=== PATIENT | male | born 1980 | race African-American/Black ===

== ENCOUNTER 2018-01-15 20:51 | Inpatient (IN) | payer OTHER ==
[2018-01-15 22:40] LABS: CKMB 46.6 ng/mL (0-6.6); Troponin I 1.655 ng/mL (< 0.028)
[2018-01-15] MEDS ORDERED: Enoxaparin Sodium 100 MG/ML SYRINGE ONE (23:14)
[2018-01-15] MEDS ORDERED: Enoxaparin Sodium 30 MG/0.3 ML SYRINGE ONE (23:14)
[2018-01-16] MEDS ORDERED: Ondansetron HCl/PF 4 MG/2 ML Vial IVP PRN (00:02)
[2018-01-16] MEDS ORDERED: Ondansetron ODT 4 MG TAB SL PRN (00:02)
[2018-01-16] MEDS: Nitroglycerin 2% Ointment 1 INCH/1 GM Packet TOP SCH ×3 (01:45→22:03)
[2018-01-16 02:11] LABS: Troponin I 2.973 ng/mL (< 0.028)
[2018-01-16] MEDS ORDERED: Nitroglycerin 2% Ointment 1 INCH/1 GM Packet ONE ×2 (02:12→08:29)
[2018-01-16] MEDS ORDERED: Dextrose 50% Abboject 50 ML SYRINGE SLOW IVP PRN (02:38)
[2018-01-16] MEDS ORDERED: Dextrose 5% in Water 1,000 ML IV PRN (02:38)
[2018-01-16] MEDS ORDERED: Atorvastatin Calcium 40 MG TAB PO ONE (02:50)
--- NOTE | 2018-01-16 03:22 | HP ---
PRIMARY CARE PHYSICIAN: Larry Curry M.D. CHIEF COMPLAINT: Chest pain. HISTORY OF PRESENT ILLNESS: The patient is a very pleasant 37-year-old male with a history of hypert ension and diabetes, who presented to the hospital with complaints of chest pain. The patient stated that around yesterday 9:00 a.m. he was trying to take a nap had some chest discomfort which woke him up. The patient initially thought that his chest pain was secondary to heartburn. He tried drinkin g a coke, but did not get any relief. The patient's burning-like sensation, chest pain, increased to a pressure-like sensation which concerned him and then he came into the ER for further evaluation. The patient was initially taken to the [facility]. Initial troponin was negative. The patient was m onitored for about 6 hours; however, the ER physician noticed an increase of troponin. He also had a CTA chest to rule out PE, which was negative. The patient was then transferred here for further maynor luation. PAST MEDICAL HISTORY: Diabetes, high blood pressure. FAMILY HISTORY: According to the patient, mother had a heart attack when he was a baby. She at the age of 67. PAST SURGICAL HISTORY: The patient had some orthopedic surgeries. PAST MEDICAL HISTORY: Diabetes, hypertension, hyperlipidemia. ALLERGIES: He is allergic to SULFA. MEDICATIONS: The patient takes atorvastatin 10 mg daily, metformin 1000 mg p.o. q.p.m. and losartan 50 mg p.o. daily. REVIEW OF SYSTEMS: The following complete review of systems was negative, unless otherwise mentioned in the HPI or below: Constitutional: Weight loss or gain, ability to conduct usual activities. Sk in: Rash, itching. Eyes: Double vision, pain. ENT/Mouth: Nose bleeding, neck stiffness, pain, ten derness. Cardiovascular: Palpitations, dyspnea on exertion, orthopnea. Respiratory: Shortness of breath, wheezing, cough, hemoptysis, fever or night sweats. Gastrointestinal: Poor appetite, abdomi nal pain, heartburn, nausea, vomiting, constipation, or diarrhea. Genitourinary: Urgency, frequency , dysuria, nocturia. Musculoskeletal: Pain, swelling. Neurologic/Psychiatric: Anxiety, depression . Allergy/Immunologic: Skin rash, bleeding tendency. All negative except for the ones mentioned in the HPI. PHYSICAL EXAMINATION: VITAL SIGNS: The patient's temperature was 98.8, blood pressure 130/58, heart rate of 90, respiratio ns 18, and saturating 99% on room air. GENERAL: He is awake, alert, oriented x3, does not appear in any distress. CARDIOVASCULAR: S1, S2 present. No murmurs, rubs or gallops. ABDOMEN: Obese. Bowel sounds are present x2. No tenderness upon palpation. No hepatomegaly or spl enomegaly appreciated. LUNGS: Clear to auscultation. No rhonchi, wheezes noted. EXTREMITIES: No edema. LABORATORY DATA: Are as the following: CBC: WBC of 8.5, hemoglobin of 14.2, hematocrit of 43.8, an d platelets of 221. The patient's troponins initially were less than 0.05; however, they continued t o worsen, they went up to 0.18. Currently, troponin is 1.65 and now it is 2.97. Creatinine is 1.0. ASSESSMENT AND PLAN: The patient is a very pleasant 37-year-old male who presents to the hospital wi th complaints of chest pain. 1. [id number] elevation myocardial infarction. The patient's troponins are trending mildly up. He did get Lovenox in the ER. We will continue Lovenox b.i.d. The patient already got aspirin. We will start the patient on statin. We will check hemoglobin A1c in the morning. We will check lipid panel in the morning. Cardiology has been consulted. We will keep patient n.p.o. after midnight. 2. Diabetes. I will put the patient on sliding scale insulin. Hold metformin for now. 3. Hypertension. We will continue home medications. We will continue to monitor. 4. Morbid obesity. The patient will need education on diet, exercise, and weight loss. 5. Deep venous thrombosis prophylaxis. The patient will be already on Lovenox for [id number] el evation myocardial infarction.
[2018-01-16] MEDS: Dextrose 5 % And 0.9 % NaCl 1,000 ML IV SCH ×2 (03:55→16:15)
[2018-01-16 06:35] LABS: Troponin I 4.165 ng/mL (< 0.028)
[2018-01-16 06:40] LABS: Hemoglobin A1c 7.8 % (4.0-6.0)
[2018-01-16 06:48] LABS: Anion Gap 12 mmol/L (10-20); BUN (Urea Nitrogen) 9 mg/dL (8.9-20.6); Calc. Creatinine Clearance 184 mL/min (70-130); Calcium 9.7 mg/dL (7.8-10.44); Carbon Dioxide 26 mmol/L (22-29); Cardiac Risk 4.8 (Less than 4.5); Chloride 102 mmol/L (98-107); Cholesterol 167 mg/dl (< 200 Desired); Estimated GFR-MDRD Greater than 90; Glucose 219 mg/dL (70-105); HDL Cholesterol 35 mg/dL (>60 Neg Risk); LDL Cholesterol, Calculated 105 mg/dL; Potassium 4.2 mmol/L (3.5-5.1); Sodium 136 mmol/L (136-145); Triglycerides 136 mg/dL (Less than 150)
[2018-01-16 06:53] LABS: Hemoglobin 14.3 g/dL (14.0-18.0); Lymphocytes 28 % (21-51); MDiff Complete? YES; Mean Corpuscular HGB CONC 32.8 g/dL (32.0-36.0); Mean Corpuscular Hemoglobin 28.3 pg (27.0-31.0); Mean Corpuscular Volume 86.4 fl (80.0-94.0); Mean Platelet Volume 6.8 fL (7.4-10.4); Monocytes 6 % (0-10); Neutrophil 65 % (42-75); Platelet Count 262 thou/uL (130-400); RBC Distribution Width 11.9 % (11.5-14.5); Reactive Lymphocytes 1 % (0-10); Red Blood Cell (RBC) Count 5.07 mill/uL (4.70-6.10); White Blood Cell (WBC) Count 9.7 thou/uL (4.8-10.8)
[2018-01-16] MEDS ORDERED: Aspirin 325 MG TAB PO SCH (08:00)
[2018-01-16] MEDS ORDERED: Enoxaparin Sodium 120 MG/0.8 ML SYRINGE SC SCH (09:00)
[2018-01-16] MEDS: Aspirin 325 MG TAB PO SCH (09:17)
[2018-01-16] MEDS: Losartan 25 MG TAB PO SCH (09:17)
[2018-01-16] MEDS: Enoxaparin Sodium 100 MG/ML SYRINGE SC SCH ×2 (09:18→22:01)
[2018-01-16] MEDS: Enoxaparin Sodium 30 MG/0.3 ML SYRINGE SC SCH (09:18)
[2018-01-16 14:32] LABS: Hemoglobin 14.8 g/dL (14.0-18.0); Platelet Count 273 thou/uL (130-400)
--- NOTE | 2018-01-16 14:33 | PDOC.EVN ---
Event Note - Event Note Event Note: Chart reviewed, pt seen. Denies any current chest pain. Will follow.
[2018-01-16 14:48] LABS: Calc. Creatinine Clearance 192 mL/min (70-130); Estimated GFR-MDRD Greater than 90
[2018-01-16] MEDS ORDERED: Communication Order-Pharmacy FS SCH (17:00)
[2018-01-16] MEDS: Atorvastatin Calcium 40 MG TAB PO SCH (22:03)
[2018-01-16] MEDS: Metoprolol Tartrate 25 MG TAB PO SCH (22:04)
--- NOTE | 2018-01-17 00:57 | CON ---
DATE OF CONSULTATION: 01/16/2018 HISTORY OF PRESENT ILLNESS: Gabriele Pham is a 37-year-old, black male admitted with NSTEMI. In 02/2017, he was seen at [facility] for chest pain and enzymes were negative. He did have a right bundle branch block on his EKG at that time. He denies any other chest pain until yesterday morning , awoke approximately 9:00 a.m. with substernal chest burning. This awakened him from sleep. He drank a coke, but this did not seem to help. He then went to the [facility]. Initial troponin I was negative; however, repeat was abnormal. He was monitored for approximately 6 hours there. He also had a chest CT with contrast that did not show anything particular. Apparently, it was not timed for ruling out pulmonary embolism. His record states that he is allergic to IODINE; however, the patient states that he is not. In the records from [facility], it states that after the chest CT that there were no complications. He only states he had some itching in his left arm , but the IV was in his right arm, and he did not have any generalized itching, rash, or shortness of breath. He has never had IODINE in the past. While at [facility], he received nitroglycerin 0.4 mg sublingually, heparin 5000 units followed by a drip, one dose of Plavix 75 mg, morphine 10 mg intravenously twice, lorazepam 2 mg IV, pantoprazole 40 mg IV, Toradol 30 mg IV , viscous lidocaine p.o., aspirin 325, and Zofran 2 mg IV. He states total duration of his pain was approximately 2 hours. He ultimately was transferred here to [facility] for further evaluation when he had positive cardiac enzymes. He denies any recurrence of the pain after subsided. PAST MEDICAL HISTORY: Hypertension, diabetes, hypercholesterolemia. He states that he frequently forgets his atorvastatin. MEDICATIONS: Aspirin 325 daily, atorvastatin 10 daily, metformin 1000 mg q.p.m. , and losartan 50 mg daily. ALLERGIES: SULFA. Question of allergy to IODINE, which patient denies. OPERATIONS: Right wrist surgery, left finger surgery. SOCIAL HISTORY: He does not smoke or drink. He is a diesel truck mechanic. He is . FAMILY HISTORY: He states that his mother had myocardial infarction sooner after giving and had a lot of heart problems. REVIEW OF SYSTEMS: Twelve-point review of systems is otherwise unremarkable. PHYSICAL EXAMINATION: VITAL SIGNS: Blood pressure 144/84, pulse of 88. HEENT: PERRL. NECK: Supple. CHEST: Clear. CARDIAC: S1 and S2 are normal without any S3, S4 or murmurs. Carotid upstrokes are normal without bruits. ABDOMEN: Normal bowel sounds without tenderness, organomegaly. The abdomen is obese. EXTREMITIES: Revealed no clubbing, cyanosis, or edema. NEUROLOGIC: Grossly intact. SKIN: Warm and dry. LABORATORY DATA: EKG revealed normal sinus rhythm with right-bundle branch block, possible old inferior infarction. Hemoglobin 14.3, hematocrit 43.8, white count 9700, platelets 262,000. Sodium 136, potassium 4.2, chloride 102, carbon dioxide 26, BUN is 9, creatinine 1.00. Troponin I has peaked at 4.165. CK-MB is up to 46.6. Cholesterol 167, triglycerides 136, HDL 35, LDL 105. IMPRESSION: 1. Rsf-LQ-[id number] elevation myocardial infarction. 2. Hypercholesterolemia, poorly-controlled diabetic with an LDL of 107. 3. Diabetes. 4. Hypertension. 5. Obesity. 6. Possible family history. 7. 4 and 5 beats of NSVT during the first 24 hours after [place]. PLAN: Situation was discussed with patient. He will undergo echocardiography to assess left ventricular function. It was recommended that he undergo cardiac catheterization. Risks of this were discussed including , myocardial infarction, dye reaction, vascular injury, CVA, transfusion, limb loss, renal loss, etc. Also, risk of intervention with PTCA or stent placement were discussed including , myocardial infarction, emergent CABG, restenosis , stent thrombosis, vessel perforation, etc. He does not have any upcoming surgeries, he has never had gastrointestinal bleeding or stroke, and overall, it was recommended that a drug-eluting stent be placed if needed. JAIRON
[2018-01-17] MEDS: Dextrose 5 % And 0.9 % NaCl 1,000 ML IV SCH ×2 (06:45→14:25)
[2018-01-17] MEDS: Nitroglycerin 2% Ointment 1 INCH/1 GM Packet TOP SCH ×3 (06:46→21:26)
[2018-01-17] MEDS: Aspirin 325 MG TAB PO SCH (09:35)
[2018-01-17] MEDS: HumaLOG 300 UNITS/3 ML VIAL SC PRN ×3 (09:36→16:56)
[2018-01-17] MEDS: Enoxaparin Sodium 100 MG/ML SYRINGE SC SCH ×2 (09:36→21:22)
[2018-01-17] MEDS: Enoxaparin Sodium 30 MG/0.3 ML SYRINGE SC SCH (09:36)
[2018-01-17] MEDS: Losartan 25 MG TAB PO SCH (09:39)
[2018-01-17] MEDS: Metoprolol Tartrate 25 MG TAB PO SCH ×2 (09:39→21:23)
--- NOTE | 2018-01-17 13:19 | PDOC.PN ---
- Subjective Encounter Start Date: 01/17/18 Encounter Start Time: 08:00 Pt seen for followup re: NSTEMI. Denies chest pain, shortness of breath, fevers or chills. - Objective MAR Reviewed: Yes Vital Signs & Weight: Vital Signs (12 hours) Temp Pulse Resp BP Pulse Ox 01/17/18 12:05 98.6 F 89 16 97/51 L 01/17/18 09:35 90 105/51 L 01/17/18 08:05 98.2 F 84 18 104/54 L 97 01/17/18 04:00 98.4 F 88 18 99/52 L 95 Weight Admit Weight 281 lb Weight 278 lb 4.8 oz I&O: 01/16/18 01/17/18 01/18/18 06:59 06:59 06:59 Intake Total 2855 Output Total 1800 Balance 1055 Result Diagrams: 01/16/18 14:24 01/16/18 14:24 Additional Labs: Accuchecks 01/17/18 01/17/18 01/16/18 10:57 05:58 21:40 POC Glucose 231 H 242 H 211 H 01/16/18 16:21 POC Glucose 233 H EKG Reviewed by me: Yes (Tele: NSR) Phys Exam - Physical Examination Obesity HEENT: PERRLA, moist MMs, sclera anicteric, oral pharynx no lesions Neck: no nodes, no JVD, supple, full ROM Respiratory: no wheezing, no rales, no rhonchi, clear to auscultation bilateral Cardiovascular: RRR, no rub Gastrointestinal: soft, non-tender, no distention, positive bowel sounds Musculoskeletal: pulses present Neurological: moves all 4 limbs Psychiatric: normal affect, A&O x 3 Dx/Plan (1) NSTEMI (non-ST elevated myocardial infarction) Code(s): I21.4 - NON-ST ELEVATION (NSTEMI) MYOCARDIAL INFARCTION Status: Acute Comment: continue aspirin, lovenox, statin, beta otilia and ARB. For cath tomorrow. (2) HTN (hypertension) Code(s): I10 - ESSENTIAL (PRIMARY) HYPERTENSION Status: Chronic Comment: Monitor vital signs, titrate antihypertensives as needed (3) DM2 (diabetes mellitus, type 2) Status: Chronic Comment: continue accuchecks, insulin sliding scale. (4) Obesity (BMI 30-39.9) Code(s): E66.9 - OBESITY, UNSPECIFIED Status: Chronic - Plan * . Review of Systems - Review of Systems Constitutional: negative: fever, chills, sweats, weakness, malaise Respiratory: negative: Cough, Shortness of Breath, SOB with Excertion, Pleuritic Pain, Wheezing Cardiovascular: negative: chest pain, palpitations, orthopnea, paroxysmal nocturnal dyspnea, edema, light headedness, other Gastrointestinal: negative: Nausea, Vomiting, Abdominal Pain, Diarrhea, Constipation, Melena, Hematochezia Genitourinary: negative: Dysuria, Frequency, Incontinence, Hematuria, Retention Skin: negative: Rash, Lesions, Noam, Bruising - Medications/Allergies Allergies/Adverse Reactions: Allergies Allergy/AdvReac Type Severity Reaction Status Date / Time iodine Allergy Verified 01/16/18 00:36 Sulfa (Sulfonamide Allergy Verified 01/16/18 00:36 Antibiotics) Medications: Current Medications Aspirin (Aspirin) 325 mg PO DAILY [facility] Last Admin: 01/17/18 09:35 Dose: 325 mg Atorvastatin Calcium (Lipitor) 40 mg PO HS [facility] Last Admin: 01/16/18 22:03 Dose: 40 mg Dextrose/Water (Dextrose 50%) 25 gm SLOW IVP PRN PRN PRN Reason: Hypoglycemia Enoxaparin Sodium (Lovenox) 100 mg SC 0900,2100 [facility] Stop: 01/17/18 23:59 Last Admin: 01/17/18 09:36 Dose: 100 mg Enoxaparin Sodium (Lovenox) 30 mg SC 0900 [facility] Stop: 01/17/18 23:59 Last Admin: 01/17/18 09:36 Dose: 30 mg Glucagon (Glucagon) 1 mg IM PRN PRN PRN Reason: Hypoglycemia Dextrose/Water (D5w) 1,000 mls @ 0 mls/hr IV .Q0M PRN; As Directed PRN Reason: Hypoglycemia Dextrose/Sodium Chloride (D5 0.9% Ns) 1,000 mls @ 75 mls/hr IV .[id number] [facility] Last Admin: 01/17/18 06:45 Dose: 1,000 mls Sodium Chloride (Normal Saline 0.9%) 1,000 mls @ 100 mls/hr IV .Q10H [facility] Insulin Human Lispro (Humalog) 0 units SC .MILD SLIDING SCALE PRN PRN Reason: Mild Correctional Scale Last Admin: 01/17/18 12:06 Dose: 3 unit Losartan Potassium (Cozaar) 50 mg PO DAILY [facility] Last Admin: 01/17/18 09:39 Dose: 50 mg Metoprolol Tartrate (Lopressor) 12.5 mg PO BID [facility] Last Admin: 01/17/18 09:39 Dose: 12.5 mg Miscellaneous Information (Communication Order-Pharmacy) 0 each FS ONE [facility] Stop: 01/17/18 23:59 Nitroglycerin (Nitro-Bid 2% Ointment) 0.5 inch TOP Q8HR [facility] Last Admin: 01/17/18 06:46 Dose: 0.5 inch
[2018-01-17] MEDS: Atorvastatin Calcium 40 MG TAB PO SCH (21:23)
[2018-01-18] MEDS ORDERED: Sodium Chloride 0.9% 1,000 ML IV SCH ×2 (06:00→11:13)
[2018-01-18] MEDS: Metoprolol Tartrate 25 MG TAB PO SCH ×2 (06:27→21:24)
[2018-01-18] MEDS: Nitroglycerin 2% Ointment 1 INCH/1 GM Packet TOP SCH ×3 (06:27→21:42)
[2018-01-18] MEDS: Losartan 25 MG TAB PO SCH (06:28)
[2018-01-18] MEDS: Aspirin 325 MG TAB PO SCH (06:29)
[2018-01-18] MEDS ORDERED: Lidocaine 1% (PF) 30 ML VIAL ONE (09:36)
[2018-01-18] MEDS ORDERED: Heparin 10,000 UNITS/1 ML VIAL ONE (09:36)
[2018-01-18] MEDS ORDERED: Midazolam HCl 2 mg/2 ml Vial ONE (10:42)
[2018-01-18] MEDS ORDERED: Fentanyl 100 MCG/2 ML VIAL ONE (10:42)
[2018-01-18] MEDS ORDERED: Protamine Sulfate 50 MG/5 ML VIAL ONE (11:00)
[2018-01-18] MEDS: Dextrose 5 % And 0.9 % NaCl 1,000 ML IV SCH ×2 (11:04→21:24)
[2018-01-18] MEDS ORDERED: Nitroglycerin 0.4 MG TAB (25 Tab Bottle) SL PRN (11:11)
[2018-01-18] MEDS ORDERED: Acetaminophen/Codeine 30-300mg Tablet PO PRN ×2 (11:11)
[2018-01-18] MEDS ORDERED: traMADol HCl 50 MG TAB PO PRN (11:11)
[2018-01-18] MEDS ORDERED: Sodium Chloride 0.9% 200 ML IV PRN (11:15)
[2018-01-18] MEDS ORDERED: Iopamidol 370 76% 100 ML VIAL ONE (13:56)
[2018-01-18] MEDS ORDERED: Iopamidol 370 76% 50 ML VIAL FS ONE (13:56)
[2018-01-18 15:19] LABS: Hemoglobin 13.5 g/dL (14.0-18.0); Platelet Count 247 thou/uL (130-400)
[2018-01-18] MEDS ORDERED: Communication Order-Pharmacy FS ONE (15:36)
[2018-01-18 15:37] LABS: Calc. Creatinine Clearance 196 mL/min (70-130); Estimated GFR-MDRD Greater than 90
--- NOTE | 2018-01-18 16:18 | PDOC.PN ---
- Subjective Encounter Start Date: 01/18/18 Encounter Start Time: 10:00 Pt seenfor followup re: NSTEMI. Denies chest pain or shortness of breath. - Objective Vital Signs & Weight: Vital Signs (12 hours) Temp Pulse Resp BP BP BP Pulse Ox 01/18/18 15:55 78 128/73 97 01/18/18 15:25 90 16 105/65 105/65 97 01/18/18 14:25 79 16 98/54 L 98/54 L 96 01/18/18 13:55 79 113/61 01/18/18 13:25 85 16 108/60 108/60 94 L 01/18/18 13:00 76 16 112/74 112/74 98 01/18/18 12:25 76 16 110/61 97 01/18/18 12:24 76 16 110/61 01/18/18 12:10 79 105/62 115/73 96 01/18/18 12:00 79 105/62 96 01/18/18 11:45 79 16 114/60 95 01/18/18 11:44 79 16 114/60 01/18/18 11:30 76 16 118/68 118/68 96 01/18/18 11:02 98 01/18/18 08:02 99.0 F 80 16 115/56 L 98 01/18/18 08:00 99.0 F 80 16 Weight Admit Weight 281 lb Weight 278 lb 14.4 oz I&O: 01/17/18 01/18/18 01/19/18 06:59 06:59 06:59 Intake Total 2855 2200 Output Total 1800 900 Balance 1055 1300 Result Diagrams: 01/18/18 15:01 01/18/18 15:01 Additional Labs: Accuchecks 01/17/18 01/17/18 20:32 16:30 POC Glucose 153 H 167 H Phys Exam - Physical Examination Obese HEENT: PERRLA, moist MMs, sclera anicteric, oral pharynx no lesions Neck: no nodes, no JVD, supple, full ROM Respiratory: no wheezing, no rales, no rhonchi, clear to auscultation bilateral Cardiovascular: RRR S1, S2 Gastrointestinal: soft, non-tender, no distention, positive bowel sounds Neurological: moves all 4 limbs Psychiatric: normal affect, A&O x 3 Dx/Plan (1) NSTEMI (non-ST elevated myocardial infarction) Code(s): I21.4 - NON-ST ELEVATION (NSTEMI) MYOCARDIAL INFARCTION Status: Acute Comment: On aspirin, lovenox, statin, beta otilia and ARB. (2) HTN (hypertension) Code(s): I10 - ESSENTIAL (PRIMARY) HYPERTENSION Status: Chronic Comment: controlled (3) DM2 (diabetes mellitus, type 2) Status: Chronic Comment: On accuchecks, insulin sliding scale. (4) Obesity (BMI 30-39.9) Code(s): E66.9 - OBESITY, UNSPECIFIED Status: Chronic - Plan * . Review of Systems - Review of Systems Constitutional: negative: fever, chills, sweats, weakness, malaise Respiratory: negative: Cough, Shortness of Breath, SOB with Excertion, Pleuritic Pain, Wheezing Cardiovascular: negative: chest pain, palpitations, orthopnea, paroxysmal nocturnal dyspnea, edema, light headedness Gastrointestinal: negative: Nausea, Vomiting, Abdominal Pain, Diarrhea, Constipation, Melena, Hematochezia Genitourinary: negative: Dysuria, Frequency, Incontinence, Hematuria, Retention Skin: negative: Rash, Lesions, Noam, Bruising - Medications/Allergies Allergies/Adverse Reactions: Allergies Allergy/AdvReac Type Severity Reaction Status Date / Time Sulfa (Sulfonamide Allergy Verified 01/16/18 00:36 Antibiotics) Medications: Current Medications Acetaminophen/Codeine Phosphate (Tylenol #3) 1 tab PO Q4H PRN PRN Reason: Mild Pain (1-3) Stop: 01/19/18 08:59 Acetaminophen/Codeine Phosphate (Tylenol #3) 2 tab PO Q4H PRN PRN Reason: Moderate Pain (4-6) Stop: 01/19/18 08:59 Aspirin (Aspirin) 325 mg PO DAILY [facility] Stop: 01/19/18 08:59 Last Admin: 01/18/18 06:29 Dose: 325 mg Atorvastatin Calcium (Lipitor) 40 mg PO HS [facility] Stop: 01/19/18 08:59 Last Admin: 01/17/18 21:23 Dose: 40 mg Dextrose/Water (Dextrose 50%) 25 gm SLOW IVP PRN PRN PRN Reason: Hypoglycemia Stop: 01/19/18 08:59 Glucagon (Glucagon) 1 mg IM PRN PRN PRN Reason: Hypoglycemia Stop: 01/19/18 08:59 Dextrose/Water (D5w) 1,000 mls @ 0 mls/hr IV .Q0M PRN; As Directed PRN Reason: Hypoglycemia Stop: 01/19/18 08:59 Dextrose/Sodium Chloride (D5 0.9% Ns) 1,000 mls @ 75 mls/hr IV .[id number] [facility] Stop: 01/19/18 08:59 Last Admin: 01/18/18 11:04 Dose: Not Given Sodium Chloride (Normal Saline 0.9%) 200 mls @ 0 mls/hr IV ONE PRN; As Directed PRN Reason: Bolus PRN SBP < 90 mm Hg Stop: 01/19/18 08:59 Sodium Chloride (Normal Saline 0.9%) 1,000 mls @ 125 mls/hr IV .Q8H [facility] Stop: 01/18/18 17:00 Insulin Human Lispro (Humalog) 0 units SC .MILD SLIDING SCALE PRN PRN Reason: Mild Correctional Scale Stop: 01/19/18 08:59 Last Admin: 01/17/18 16:56 Dose: 2 unit Losartan Potassium (Cozaar) 50 mg PO DAILY [facility] Stop: 01/19/18 11:00 Last Admin: 01/18/18 06:28 Dose: 50 mg Metoprolol Tartrate (Lopressor) 12.5 mg PO BID [facility] Stop: 01/19/18 11:00 Last Admin: 01/18/18 06:27 Dose: 12.5 mg Nitroglycerin (Nitro-Bid 2% Ointment) 0.5 inch TOP Q8HR [facility] Stop: 01/19/18 08:59 Last Admin: 01/18/18 06:27 Dose: 0.5 inch Nitroglycerin (Nitrostat) 0.4 mg SL Q5MIN PRN PRN Reason: Chest Pain Stop: 01/19/18 08:59 Tramadol HCl (Ultram) 50 mg PO Q6H PRN PRN Reason: Moderate Pain (4-6) Stop: 01/19/18 08:59
--- NOTE | 2018-01-18 17:14 | RAD ---
AP VIEW CHEST: INDICATIONS: Preoperative procedure for open heart surgery. COMPARISON: None. FINDINGS: The lungs are clear. The cardiomediastinal silhouette is normal. No acute osseous abnormality is no ejricho. IMPRESSION: No acute cardiopulmonary abnormality. POS: JOANAH
[2018-01-18] MEDS: Atorvastatin Calcium 40 MG TAB PO SCH (21:24)
--- NOTE | 2018-01-18 21:29 | CON ---
DATE OF CONSULTATION: 01/18/2018 REQUESTING PHYSICIAN: Dr. Parikh. PRIMARY CARE PHYSICIAN: Dr. Larry Curry. CHIEF COMPLAINT: Chest pain. HISTORY OF PRESENT ILLNESS: The patient is a 37-year-old black man with hypertension and diabetes an d possibly a family history of premature coronary disease. Thursday morning, he awoke from a nap with what he thought was bad heartburn. Over time, the burning sensation evolved into more distinct chest pressure and he drove himself to a freestanding emergency room. By report, his first troponin was n egative, but when his second troponin came back positive, he was transferred to [facility] for [facility] evaluation and care. His post-infarction course has been uncomplicated and his cardiac catheteriza tion today shows three-vessel coronary disease with low normal LV function. The patient denies any a ssociated shortness of breath, nausea, diaphoresis or radiation of discomfort and he denies any antec edent symptoms similar in nature. 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 PAST MEDICAL HISTORY: Significant for diabetes over the last five or so years and hypertension. HOME MEDICATIONS: Metformin 1000 mg in the evening, losartan 50 mg a day, and Lipitor 10 mg at bedti me. He has been on full dose Lovenox which is currently on hold and he received a single dose of 75 mg of Plavix at the [facility] emergency room. CURRENT MEDICATIONS: Aspirin 325 mg a day, Lipitor 40 mg at bedtime, losartan 50 mg a day, Lopressor 12.5 mg b.i.d., and nitro paste 1/2 inch q.8 hours. ALLERGIES: In questioning him while his list has been allergic to SULFONAMIDES and IODINE, he denied to me allergies to both. SOCIAL HISTORY: The patient does not smoke or drink alcohol. FAMILY HISTORY: Possibly positive for his mother having premature coronary disease. He describes he r as having had a heart attack in the peripartum period and having had heart problems as long as he c an remember. She a few months ago in her 60s. REVIEW OF SYSTEMS: Negative for any transient high speech, facial or extremity symptoms to suggest T IA. Negative for back pain. Negative for claudication symptoms. Negative for any shortness of blessing th, orthopnea or PND. PHYSICAL EXAMINATION: GENERAL: He is a very large man in no distress. VITAL SIGNS: Height 6 feet tall, weight is 278 pounds and 14-1/2 ounces. Heart rate at 79, blood pr essure 98/54, room air O2 sats are 94%-96%. During this hospital stay, his heart rates have mostly b een in the 80-90 range and blood pressures in the 100-120/55-75 range. His first heart rate and bloo d pressure upon arrival in our emergency room was 98 and 171/109 respectively. NECK: No JVD, no carotid bruits, no xanthelasma. LUNGS: His chest is clear to auscultation. CARDIOVASCULAR: Regular rate and rhythm without any obvious murmur or gallop. ABDOMEN: Soft and nontender. EXTREMITIES: He has easily palpable radial pulses bilaterally with normal Good's testing. He has a normal left femoral pulse, without any bruit. His right femoral is bandaged following his catheteri zation. He has easily palpable dorsalis pedis pulses. I was not able to appreciate posterior tibial s. He has no clubbing, cyanosis or edema. NEUROLOGIC: Grossly nonfocal. His EKG shows what appears to be a right bundle branch pattern. LABORATORY DATA: Shows a white count of 9.7, hemoglobin of 14.3, hematocrit 43.8 and platelets 262,0 00. Sodium 136, potassium 4.2, chloride 102, CO2 of 26, glucose 219, BUN 9, creatinine 1.0. Triglyc erides were 136, cholesterol 167 with LDL 105 and HDL 35. Hemoglobin A1c was 7.8. Troponins here ab out 10:00 on the night of the were 1.655, about 1:00 the following morning 2.973, and about 4:00 the following morning 4.165. His blood sugars yesterday afternoon and evening were in the mid 100s, but prior to that all of his blood sugars were in the low to mid 200s. His cardiac catheterization shows a right dominant system. He has normal left main. He has a very high grade fairly proximal LA D lesion and that is just beyond the first septal tooling mechanic. He has multiple small diagonals one of which has ostial disease in it. He has a ramus type OM1 with about an 80% ostial lesion in it that vessel bifurcates with a larger anterior and a smaller posterior branch. The remaining obtuse margin als are rather small. There is left to right filling of an occluded right-sided vessel on the right- sided injections. It can be appreciated that this represents the posterolateral branch. It does not appear to fill all the way to the crux very well. There is some haziness in the crux in the very pr oximal PDA. The heart looks a little bit large on ventriculography with a 40% or 50% LVEF, little bi t of apical and posterior hypokinesis, LVEDP is 9 and 16 with an LV pressure of 117/4 and an aortic p ullback of 113/75 with a mean of 94. Echocardiography have an estimated EF of 40%-45% with moderate concentric LVH. IMPRESSION AND RECOMMENDATIONS: Three-vessel coronary disease in a young diabetic man with an uncomplicated to-date post-infarction c anita. We will plan on surgical revascularization and I have discussed the use of radial artery harv est and the rationale for multiple arterial conduits in young patients.
[2018-01-19] MEDS: Metoprolol Tartrate 25 MG TAB PO SCH (05:28)
[2018-01-19] MEDS: Losartan 25 MG TAB PO SCH (05:28)
[2018-01-19] MEDS ORDERED: CEFAZOLIN/Water 2 GM/20 ML SYRINGE ONE (06:14)
[2018-01-19] MEDS ORDERED: Papaverine 60 MG/2 ML VIAL ONE ×2 (06:33→16:04)
[2018-01-19] MEDS ORDERED: Albumin 5% 500 ML ONE (06:33)
[2018-01-19] MEDS ORDERED: Vecuronium 10 MG VIAL ONE ×2 (06:35→16:04)
[2018-01-19] MEDS ORDERED: Midazolam HCl 5 mg/5 ml Vial ONE (06:35)
[2018-01-19] MEDS ORDERED: Fentanyl 250 MCG/5 ML VIAL ONE ×4 (06:35→11:41)
[2018-01-19] MEDS ORDERED: Heparin 10,000 UNITS/1 ML VIAL 30,000 UNITS in Sodium Chloride 0.9% 1,000 ML FS SCH (06:45)
[2018-01-19] MEDS ORDERED: Mag-Al 1200 mg/1200 mg/30 ML UDCUP PO PRN (06:56)
[2018-01-19] MEDS ORDERED: Acetaminophen 325 MG TAB PO PRN (06:56)
[2018-01-19] MEDS ORDERED: Hetastarch 6% 500 ML 500 ML IVPB PRN (06:56)
[2018-01-19] MEDS ORDERED: Bisacodyl 10 MG SUPP PR PRN (06:56)
[2018-01-19] MEDS ORDERED: Potassium Chloride 20 MEQ/100 ML PREMIX BAG IVPB PRN (06:56)
[2018-01-19] MEDS ORDERED: Guaifenesin DM 100-10/5 ML UDCUP PO PRN (06:56)
[2018-01-19] MEDS ORDERED: Bisacodyl 5 MG TAB PO PRN (06:56)
[2018-01-19] MEDS ORDERED: Nitroglycerin 50 MG/250 ML BOT 250 ML IVPB PRN (06:56)
[2018-01-19] MEDS ORDERED: hydrALAZINE 20 MG/ML VIAL SLOW IVP PRN (06:56)
[2018-01-19] MEDS ORDERED: Promethazine HCl 25 MG/ML VIAL IM PRN (06:56)
[2018-01-19] MEDS ORDERED: Ondansetron HCl/PF 4 MG/2 ML Vial IVP PRN (06:56)
[2018-01-19] MEDS ORDERED: Fentanyl 100 MCG/2 ML VIAL SLOW IVP PRN (06:56)
[2018-01-19] MEDS ORDERED: Norepinephrine 8 MG/0.9% NS 250 ML IVPB PRN (06:56)
[2018-01-19] MEDS ORDERED: Post-Op Insulin Drip Protocol IVPB ONE (06:56)
[2018-01-19] MEDS ORDERED: Insulin Regular 300 UNITS/3 ML VIAL ONE (07:16)
[2018-01-19] MEDS ORDERED: Dextrose 5% in Water 1,000 ML IV PRN (07:32)
[2018-01-19] MEDS ORDERED: Dextrose 50% Abboject 50 ML SYRINGE SLOW IVP PRN (07:32)
[2018-01-19] MEDS: Sodium Chloride 0.9% 1,000 ML IV SCH ×2 (11:42→17:30)
[2018-01-19] MEDS: Nitroglycerin 2% Ointment 1 INCH/1 GM Packet TOP SCH (11:42)
[2018-01-19] MEDS: Famotidine 40 MG/4 ML VIAL SLOW IVP SCH ×2 (11:43→22:59)
[2018-01-19] MEDS: Aspirin 325 MG TAB PO SCH (11:43)
--- NOTE | 2018-01-19 13:28 | PDOC.PN ---
- Subjective Encounter Start Date: 01/19/18 Encounter Start Time: 17:00 Patient is Sen today, drowsy, returned from CABG. - Objective MAR Reviewed: Yes Vital Signs & Weight: Vital Signs (12 hours) Temp Pulse Resp BP Pulse Ox 01/19/18 03:52 97.9 F 81 14 104/59 L 97 Weight Admit Weight 281 lb Weight 285 lb 6.4 oz I&O: 01/18/18 01/19/18 01/20/18 06:59 06:59 06:59 Intake Total 2200 677 Output Total 900 700 Balance 1300 -23 Result Diagrams: 01/20/18 04:39 01/20/18 04:39 Additional Labs: Accuchecks 01/19/18 01/19/18 01/19/18 12:43 12:09 11:28 POC Glucose 254 H 219 H 194 H 01/19/18 01/19/18 01/19/18 11:05 10:51 08:31 POC Glucose 199 H 204 H 188 H 01/18/18 01/18/18 01/18/18 20:53 16:52 10:17 POC Glucose 183 H 129 H 149 H 01/18/18 05:53 POC Glucose 163 H Radiology Reviewed by me: Yes Phys Exam - Physical Examination HEENT: PERRLA, moist MMs Neck: no nodes, no JVD Respiratory: no wheezing, no rales Cardiovascular: RRR, no significant murmur Gastrointestinal: soft, non-tender Musculoskeletal: no edema, pulses present Dx/Plan (1) NSTEMI (non-ST elevated myocardial infarction) Code(s): I21.4 - NON-ST ELEVATION (NSTEMI) MYOCARDIAL INFARCTION Status: Acute Comment: On aspirin, lovenox, statin, beta otilia and ARB. CABG today , returned from surgery, No chest pain. (2) DM2 (diabetes mellitus, type 2) Status: Chronic Comment: On accuchecks, insulin sliding scale. (3) HTN (hypertension) Code(s): I10 - ESSENTIAL (PRIMARY) HYPERTENSION Status: Chronic Comment: controlled (4) Obesity (BMI 30-39.9) Code(s): E66.9 - OBESITY, UNSPECIFIED Status: Chronic - Plan cont current plan of care, harrison catheter, respiratory therapy, incentive spirometry, DVT proph w/lovenox Plan to [place] monitor for any post Op complications. Will follow along with cardiology. - Discharge Day Encounter end time: 17:30 Review of Systems - Review of Systems Other: Unable to obtain, as patient is very obtunded . - Medications/Allergies Allergies/Adverse Reactions: Allergies Allergy/AdvReac Type Severity Reaction Status Date / Time Sulfa (Sulfonamide Allergy Verified 01/16/18 00:36 Antibiotics) Medications: Current Medications Acetaminophen (Tylenol) 650 mg PO Q6H PRN PRN Reason: Headache/Fever Or Mild Pain Hydrocodone Bitart/Acetaminophen ([place] 5/325) 1 tab PO Q4H PRN PRN Reason: Moderate Pain (4-6) Last Admin: 01/20/18 06:19 Dose: 1 tab Hydrocodone Bitart/Acetaminophen ([place] 5/325) 2 tab PO Q4H PRN PRN Reason: Severe Pain (7-10) Last Admin: 01/19/18 22:56 Dose: 2 tab Al Hydroxide/Mg Hydroxide (Maalox) 30 ml PO Q4H PRN PRN Reason: Indigestion Albuterol/Ipratropium (Duoneb) 3 ml NEB Q6H PRN PRN Reason: SHORTNESS OF BREATH Aspirin (Aspirin) 325 mg PO DAILY [facility] Last Admin: 01/20/18 09:46 Dose: 325 mg Atorvastatin Calcium (Lipitor) 40 mg PO HS [facility] Last Admin: 01/19/18 22:56 Dose: 40 mg Bisacodyl (Dulcolax) 10 mg PO Q12H PRN PRN Reason: Constipation Bisacodyl (Dulcolax) 10 mg [place] Q12H PRN PRN Reason: Constipation Dextrose/Water (Dextrose 50%) 25 gm SLOW IVP PRN PRN PRN Reason: PER HYPOGLYCEMIC PROTOCOL Famotidine (Pepcid) 20 mg SLOW IVP Q12HR [facility] Last Admin: 01/20/18 09:46 Dose: 20 mg Furosemide (Lasix) 40 mg SLOW IVP 0600,1400 [facility] Stop: 01/21/18 06:01 Glucagon (Glucagon) 1 mg SC PRN PRN PRN Reason: PER HYPOGLYCEMIC PROTOCOL Guaifenesin/Dextromethorphan (Robitussin Dm) 15 ml PO Q4H PRN PRN Reason: Cough Dextrose/Water (D5w) 1,000 mls @ 0 mls/hr IV INF PRN; As Directed PRN Reason: PRN HYPOGLYCEMIC PROTOCOL Insulin Human Regular (Humulin R) 0 units SC Q4H PRN; Protocol PRN Reason: POST CABG SLIDING SCALE Ketorolac Tromethamine (Toradol) 30 mg IVP Q6HR [facility] Stop: 01/22/18 06:01 Last Admin: 01/20/18 05:18 Dose: 30 mg Metoprolol Tartrate (Lopressor) 12.5 mg PO BID [facility] Last Admin: 01/20/18 09:46 Dose: 12.5 mg Ondansetron HCl (Zofran) 4 mg IVP Q6H PRN PRN Reason: Nausea/Vomiting Sodium Chloride (Flush - Normal Saline) 10 ml IVF Q12HR [facility] Last Admin: 01/20/18 09:47 Dose: 10 ml
[2018-01-19 14:50] LABS: Actual Bicarbonate (HCO3a) 22.2 mEq/L (22-26); Base Excess (BEa) -2.4 mEq/L (0 (+/-) 2.5); CO2 Tension 37.5 mmHg (35.0-45.0); Hematocrit-ABG 36.1 % (42.0-52.0); Hemoglobin (Hb) 11.6 g/dL (14.0-18.0); O2 Tension (PaO2) 114.7 mmHg (80.0-100.0); pH, Arterial 7.39 (7.35-7.45)
[2018-01-19 14:51] LABS: ALV-art Gradient 121.625 (0-20); Calcium, Ionized 1.3 mmol/L (1.12-1.30); Puncture Site ALINE
--- NOTE | 2018-01-19 15:13 | OP ---
DATE OF PROCEDURE: 01/19/2018 PROCEDURES PERFORMED: Left subclavian central line placement, coronary artery bypass grafting x4 wit h left internal mammary artery to the LAD, reverse greater saphenous vein graft from the aorta to the PDA and sequential left radial artery from the aorta (oneil of the PDA vein graft proximal anastomosi s) to the ramus intermedius to the posterolateral branch of the RCA. PREOPERATIVE DIAGNOSIS: Coronary artery disease, status post non-ST elevation myocardial infarction. POSTOPERATIVE DIAGNOSIS: Coronary artery disease, status post non-ST elevation myocardial infarction . SURGEON: Carter Chan M.D. SALESPERSON SURGICAL APPLIANCES: Sin. ANESTHESIA: General endotracheal anesthesia. INDICATIONS: The patient is a 37-year-old diabetic man who presented with what he initially thought to be heartburn which awoke him from sleep as it evolved into more typical chest pressure. He presen jericho to a freestanding emergency room and his troponins turned positive and he was transferred here. He has had an uncomplicated post-infarction course and cardiac catheterization demonstrated 3-vessel coronary artery disease with high grade lesions in his LAD and ramus and occluded posterolateral bran ch of his right coronary and hazy disease in the distal right proximal PDA. He had overall preserved left ventricular function. He is right hand dominant and has a normal Good's testing. He is now t aken to the operating room for revascularization. FINDINGS: Pump time 87 minutes, crossclamp time 44 minutes. Good quality MELECIO radial artery and saph enous vein. The LAD and ramus were both 2 mm, posterolateral branch of the RCA were grafted, it was 1.5 mm, PDA was about 1.5-2 mm. There was hard plaque at the crux extending into the origin of both PDA and the posterolateral branches. Pericardium was closed. NARRATIVE REPORT: After informed consent was obtained, the patient was taken to the operating room a nd placed in supine position on the operating table. After the injection of general anesthesia, the patient was placed in Trendelenburg and his left upper chest was prepped and draped in sterile fashio n. A triple-lumen central line kit was used to place a left subclavian line by the [employer]. All three ports easily aspirated and flushed. The line was secured. The patient's torso, groin s, lower extremities and left upper extremity were then prepped and draped in sterile fashion. A seth gitudinal incision was made distally on the left wrist over the palpable radial pulse. The radial ar jing was exposed and isolated. Doppler examination of the hand showed no loss of Doppler signals in the palmar arch or the fingers with a test occlusion of the radial artery. Radial artery was then owens rvested from that point up to its origin from the brachial artery. It was ligated and divided first proximally. There was good backbleeding from the radial artery which was then ligated and divided di stally, it was cannulated distally and distended with papaverine solution and assessed for adequacy o f control of side branches. He was placed in a papaverine soaked sponge. The wounds were inspected for hemostasis and closed in layers of subcutaneous and subcuticular Vicryl. That arm was tucked and then saphenous vein was endoscopically harvested from just above the left knee to the groin and prep ared for use as a graft. Those incisions were closed with subcutaneous and subcuticular Vicryl. Med lazaro sternotomy was performed. The left pleural space was entered and the left MELECIO was mobilized as a pedicle from the level of the xiphoid to the level of the subclavian vein. Side branch was controll ed with small Hemoclips. The patient was heparinized and the mammary was ligated and divided distall y and then instilled intraluminally with papaverine solution, relieving spasm and reestablishing a st katie pulse in it. The mammary bed was inspected for hemostasis. The MELECIO retractor was placed with cydney Blake retractor. The pericardium was opened and marsupialized. They were palpated and were so ft. A double concentric pursestring of #2 Ethibond was placed in the ascending aorta just beyond the pericardial reflection and a single pursestring was placed in the right atrial appendage. Aortic an d venous cannulae were inserted and secured by their pursestrings. Cardiopulmonary bypass was instit uted. The patient was systemically cooled. Heart was examined. The vessels to be bypassed were mayi ntified. The diagonals were readily identifiable to which it had visible plaque, but they were all v heidi small vessels. The remaining vessels in question all appeared to be adequate to support grafting and measuring the distance from the coronaries, it appeared that there would be enough length of rad ial artery to use it is a sequential graft to the ramus and the posterolateral branches of the right coronary. Without developing the plane between the aorta and the pulmonary artery, an aortic crosscl amp was applied and cardioplegia was administered through an aortic root needle and arrested been ach ieved, attention was turned to the distal right coronary system. The PDA was opened proximally and r everse saphenous vein was anastomosed there end-to-side with running Prolene suture and tested by flu shing cold cardioplegic down the graft. The posterolateral branch of the right was then exposed and opened where it had emerged on the epicardial surface and turned out towards the apex out of the groo ve. The proximal portion of the radial artery was slightly spatulated and anastomosed their end-to-s mayi with running Prolene suture orienting the anastomosis perpendicular to the axis of the coronary. The ramus was then exposed and opened where it began to dive into an intramyocardial position. A lo ngitudinal arteriotomy was correspondingly made in the radial artery graft and a [id number] anastom osis was constructed between the radial artery and the ramus with running Prolene. This anastomosis was also oriented perpendicular to the axis of the coronary. The LAD was then opened distally and th e left mammary was introduced into the pericardium through a slit made in the pericardium anterior to the phrenic nerve. Mammary was anastomosed there end-to-side with running 7-0 Prolene and tacked to the epicardium. The aortic crossclamp was placed with partial occluding clamp and an aortotomy was made in the ascending aorta with scalpel and punch incorporating the root needle site. The PDA graft was brought along the right side of the heart, generously spatulated and anastomosed there end-to-si de with running Prolene. The vein graft was allowed to backbleed to distend it and a longitudinal ve notomy was made in the oneil of the proximal anastomosis. A sequential radial artery graft was then t rimmed to length and spatulated and anastomosed there end-to-side with running Prolene. The radial a rtery was allowed to backbleed and then it was occluded at the origin of its takeoff from the oneil of the PDA graft and the partial occlusion clamp was removed. The vein graft was deaired. The anastom oses were inspected for hemostasis. Posterior pericardial and left pleural drains were brought out t hrough separate incisions and secured with suture. Right atrial and right ventricular temporary epic ardial pacing wires were placed. The patient was then easily from cardiopulmonary bypass. The aortic and venous cannulae were removed and the pursestring secured. Protamine was administered . When hemostasis was adequate, an anterior mediastinal drain was placed and the pericardium easily closed over with running Vicryl. The sternum was reapproximated with #7 stainless steel wires. The fascia was closed over the wires and heavy Vicryl. Subcutaneous tissue was irrigated and reapproxima jericho and the skin was closed with Vicryl subcuticular stitch. The wounds were dressed and the patient was taken to the Intensive Care Unit in stable condition.
[2018-01-19] MEDS: Ketorolac Tromethamine 30 MG/ML VIAL IVP SCH ×3 (15:22→22:57)
--- NOTE | 2018-01-19 15:54 | RAD ---
AP VIEW CHEST: Date: 01/19/18 INDICATION: Status post open heart surgery. COMPARISON: Prior study dated 01/18/18. FINDINGS: Since the comparison examination, there has been interval performance of a midline sternotomy. There is a left-sided chest tube in place. There is a central mediastinal drain in place. There is a left s ubclavian central venous catheter projecting in the region of the SVC. The patient remains intubated with the tip of the catheter seen within the distal trachea, 3.5 cm from the level of the nacho. The re is cardiomegaly with pulmonary vascular congestion. There is suspicion for small bilateral pleural effusions. No pneumothorax is evident. IMPRESSION: Postoperative chest with findings as above. POS: [facility]
[2018-01-19] MEDS ORDERED: Thrombin 5000 UNITS/5 ML VIAL ONE (16:04)
[2018-01-19] MEDS ORDERED: Aminocaproic Acid 5 GM/20 ML VIAL ONE (16:04)
[2018-01-19] MEDS ORDERED: ePHEDrine/0.9% NaCl/PF SYRINGE 50 mg/10 ml ONE (16:04)
[2018-01-19] MEDS ORDERED: Calcium Chloride 1 GM/10 ML Abboject SYRINGE ONE (16:04)
[2018-01-19] MEDS ORDERED: Lidocaine 2% PF 100 mg/5 ml Syringe ONE (16:04)
[2018-01-19] MEDS ORDERED: PHENYLEPHRINE-NS 100 MCG/ML 10 ML SYRINGE ONE (16:04)
[2018-01-19] MEDS ORDERED: PROPOFOL 200 MG/20 ML VIAL ONE (16:04)
[2018-01-19] MEDS ORDERED: Sodium Bicarb 50 MEQ/50 ML VIAL ONE (16:04)
[2018-01-19] MEDS ORDERED: Magnesium 5 GM/10 ML VIAL ONE (16:04)
[2018-01-19] MEDS ORDERED: Nitroglycerin 50 MG/250 ML BOT ONE (16:04)
[2018-01-19] MEDS ORDERED: Protamine Sulfate 250 MG/25 ML VIAL ONE (16:04)
[2018-01-19] MEDS ORDERED: Sodium Bicarb 50 MEQ/50 ML Abboject 8.4% SYRINGE ONE (16:04)
[2018-01-19] MEDS ORDERED: Potassium Chloride 60 MEQ/30 ML VIAL ONE (16:04)
[2018-01-19] MEDS ORDERED: Heparin 5,000 UNITS/ML VIAL ONE (16:04)
[2018-01-19] MEDS ORDERED: Norepinephrine 4 MG/4 ML VIAL ONE (16:04)
[2018-01-19] MEDS ORDERED: Lidocaine 1% PF 5 ML VIAL ONE (16:04)
[2018-01-19] MEDS ORDERED: Heparin 30,000 units/30 ml VIAL ONE (16:04)
[2018-01-19] MEDS ORDERED: Cardioplegic Soln 1,000 ML BAG ONE (16:04)
--- NOTE | 2018-01-19 16:47 | EKG ---
Test Reason : POST CABG Blood Pressure : / mmHG Vent. Rate : 116 BPM Atrial Rate : 116 BPM P-R Int : 132 ms QRS Dur : 136 ms QT Int : 382 ms P-R-T Axes : 067 016 -17 degrees QTc Int : 530 ms Sinus tachycardia Right bundle branch block Inferior infarct (cited on or before 15-JAN-2018) Abnormal ECG When compared with ECG of 16-JAN-2018 02:46, No significant change was found Confirmed by DR. Michele SCHMITT ([id number]) on 01/19/2018 4:46:36 PM Referred By: DEBBI Confirmed By:DR. Michele SCHMITT
[2018-01-19 17:22] LABS: Actual Bicarbonate (HCO3a) 18.3 mEq/L (22-26); Base Excess (BEa) -6.1 mEq/L (0 (+/-) 2.5); CO2 Tension 32.6 mmHg (35.0-45.0); Calcium, Ionized 1.2 mmol/L (1.12-1.30); Hematocrit-ABG 38.2 % (42.0-52.0); Hemoglobin (Hb) 11.9 g/dL (14.0-18.0); Puncture Site ALINE; pH, Arterial 7.64 (7.35-7.45)
[2018-01-19] MEDS: Fentanyl 100 MCG/2 ML VIAL SLOW IVP PRN ×2 (18:11→20:15)
[2018-01-19 19:01] LABS: Hemoglobin 11.4 g/dL (14.0-18.0)
[2018-01-19] MEDS: HYDROcodone/Acetaminophen 5/325 mg Tablet PO PRN ×2 (19:06→22:56)
[2018-01-19 19:14] LABS: Potassium 4.1 mmol/L (3.5-5.1)
[2018-01-19] MEDS: Atorvastatin Calcium 40 MG TAB PO SCH (22:56)
[2018-01-20] MEDS: Sodium Chloride 0.9% 1,000 ML IV SCH (00:34)
--- NOTE | 2018-01-20 00:35 | CON ---
DATE OF CONSULTATION: 01/19/2018 HISTORY OF PRESENT ILLNESS: Mr. Pham is a 37-year-old male who underwent coronary artery bypass g rafting today. He was awake when I have examined him, but still intubated in the ICU. He had a MARTEL to his LAD, a s aphenous vein to his posterior descending and a sequential left radial artery from his aorta to the r amus intermedius and then the posterolateral branch to the RCA. He presented with a non-ST elevation myocardial infarction. I was able to move all of his extremities and nodded quickly to questions when evaluated today. PAST MEDICAL HISTORY: Remarkable for diabetes and hypertension. FAMILY HISTORY: There is a family history of heart disease at a young age. PAST SURGICAL HISTORY: Only orthopedic surgeries. His orthopedic surgeries were left finger and rig ht wrist surgery. SOCIAL HISTORY: He is a nonsmoker and nondrinker. He is , employed as a diesel truck driver. ALLERGIES: There is reported allergy to SULFA. Patient denies reported IODINE allergy. REVIEW OF SYSTEMS: Not obtainable since he is intubated, but presenting review of systems is otherwi se unremarkable according to the notes, they have all been reviewed. PHYSICAL EXAMINATION: VITAL SIGNS: Blood pressure is 102/65, heart rate was 88, respiratory rate was in the 20s on 10 of p ressure support, 5 of PEEP. He is turned to 5 of pressure support and 5 of PEEP. HEENT: His pupils are equal, moved all extremities equally. His feet and hands were warm. His head and neck exam was otherwise unremarkable. LUNGS: Clear. HEART: Regular rhythm. S1 and S2 are normal. ABDOMEN: Soft and nontender. EXTREMITIES: No clubbing, cyanosis, or edema. He does nod to questions and denies ever being told he had sleep apnea. LABORATORY DATA: White count was 9.7 two days ago. His hemoglobin is 13.5 after surgery and the martín rt prior to surgery yesterday. Glucoses are around 200. Blood gas at 0500 hours; pH 7.64, CO2 of 32, and pO2 of 143. He is pulling 700 mL tidal volumes with just 5 of pressure support, and 5 of PEEP. Chest radiograph showed no edema. IMPRESSION: Status post coronary artery bypass grafting, clinically stable. He will likely wean per extubation protocol. Critical care time was 30 minutes.
[2018-01-20 04:47] LABS: #Lymphocytes 0.9 thou/uL (1.20-3.40); #Monocytes 0.8 thou/uL (0.11-0.59); #Neutrophils 5.8 thou/uL (1.40-6.50); %Eosinophils 0.2 % (0.0-10.0); %Neutrophils 77.8 % (42.0-75.0); Hemoglobin 9.3 g/dL (14.0-18.0); Mean Corpuscular HGB CONC 32.5 g/dL (32.0-36.0); Mean Corpuscular Hemoglobin 28.5 pg (27.0-31.0); Mean Corpuscular Volume 87.4 fl (80.0-94.0); Mean Platelet Volume 6.8 fL (7.4-10.4); Platelet Count 153 thou/uL (130-400); RBC Distribution Width 11.8 % (11.5-14.5); Red Blood Cell (RBC) Count 3.25 mill/uL (4.70-6.10); White Blood Cell (WBC) Count 7.5 thou/uL (4.8-10.8)
[2018-01-20 04:55] LABS: Anion Gap 8 mmol/L (10-20); BUN (Urea Nitrogen) 11 mg/dL (8.9-20.6); Calc. Creatinine Clearance 220 mL/min (70-130); Carbon Dioxide 21 mmol/L (22-29); Chloride 113 mmol/L (98-107); Estimated GFR-MDRD Greater than 90; Glucose 96 mg/dL (70-105); Potassium 3.8 mmol/L (3.5-5.1); Sodium 138 mmol/L (136-145)
[2018-01-20] MEDS: Ketorolac Tromethamine 30 MG/ML VIAL IVP SCH ×4 (05:18→23:18)
[2018-01-20] MEDS: HYDROcodone/Acetaminophen 5/325 mg Tablet PO PRN ×3 (06:19→23:18)
--- NOTE | 2018-01-20 09:10 | RAD ---
PORTABLE CHEST: HISTORY: Postop sternotomy. COMPARISON: 01/19/18. FINDINGS: Left chest tube is unchanged in position. There is evidence o bibasilar atelectasis, slightly more p ronounced on the left. Mild cardiomegaly with postop sternotomy change. Central line is unchanged. The ET tube has been removed. IMPRESSION: No definite pneumothorax identified. No acute interval change apparent. POS: [facility]
[2018-01-20] MEDS: Famotidine 40 MG/4 ML VIAL SLOW IVP SCH (09:46)
[2018-01-20] MEDS: Aspirin 325 MG TAB PO SCH (09:46)
[2018-01-20] MEDS: Metoprolol Tartrate 25 MG TAB PO SCH ×2 (09:46→20:35)
--- NOTE | 2018-01-20 10:28 | PDOC.PN ---
- Subjective Encounter Start Date: 01/20/18 Encounter Start Time: 10:00 Patient is seen today, c/o Double visison. Left Lower Extremity weakness. No speech problems. he never these symptoms before. - Objective MAR Reviewed: Yes Vital Signs & Weight: Vital Signs (12 hours) Temp Pulse Resp Pulse Ox 01/20/18 08:00 99.1 F 107 H 19 100 01/20/18 07:00 99.1 F 01/20/18 05:00 98.9 F 01/20/18 01:00 99.3 F Weight Admit Weight 281 lb Weight 300 lb 0.786 oz Most Recent Monitor Data Heart Rate from ECG 108 NIBP 114/69 NIBP BP-Mean 92 Respiration from ECG 19 SpO2 100 I&O: 01/19/18 01/20/18 01/21/18 06:59 06:59 06:59 Intake Total 677 2617.4 100 Output Total 700 1340 190 Balance -23 1277.4 -90 Result Diagrams: 01/20/18 04:39 01/20/18 04:39 Additional Labs: Accuchecks 01/20/18 01/20/18 01/20/18 07:55 05:16 04:12 POC Glucose 174 H 104 90 01/20/18 01/20/18 01/20/18 03:11 02:07 01:07 POC Glucose 116 H 114 H 101 01/20/18 01/19/18 01/19/18 00:02 23:05 22:07 POC Glucose 111 H 128 H 164 H 01/19/18 01/19/18 01/19/18 21:12 20:23 18:55 POC Glucose 195 H 227 H 233 H 01/19/18 01/19/18 01/19/18 18:17 17:17 16:12 POC Glucose 260 H 242 H 174 H 01/19/18 01/19/18 01/19/18 14:47 14:18 13:23 POC Glucose 188 H 174 H 212 H 01/19/18 01/19/18 01/19/18 12:43 12:09 11:28 POC Glucose 254 H 219 H 194 H 01/19/18 01/19/18 01/19/18 11:05 10:51 06:34 POC Glucose 199 H 204 H 210 H Radiology Reviewed by me: Yes Phys Exam - Physical Examination HEENT: moist MMs Double vision Right Eye Neck: no nodes, no JVD Respiratory: no wheezing, no rales Cardiovascular: RRR, no significant murmur Gastrointestinal: soft, non-tender Musculoskeletal: no edema, pulses present Neurological: non-focal, normal sensation Lymphatic: no nodes Psychiatric: normal affect, A&O x 3 Dx/Plan (1) NSTEMI (non-ST elevated myocardial infarction) Code(s): I21.4 - NON-ST ELEVATION (NSTEMI) MYOCARDIAL INFARCTION Status: Acute Comment: On aspirin, lovenox, statin, beta otilia and ARB. CABG today , returned from surgery, No chest pain. (2) DM2 (diabetes mellitus, type 2) Status: Chronic Comment: On accuchecks, insulin sliding scale. (3) HTN (hypertension) Code(s): I10 - ESSENTIAL (PRIMARY) HYPERTENSION Status: Chronic Comment: controlled (4) Obesity (BMI 30-39.9) Code(s): E66.9 - OBESITY, UNSPECIFIED Status: Chronic (5) S/P CABG (coronary artery bypass graft) Code(s): Z95.1 - PRESENCE OF AORTOCORONARY BYPASS GRAFT Status: Acute Comment: Pt will be continued on Meds per CT sugrery. Aspirin/ BB. (6) Double vision Code(s): H53.2 - DIPLOPIA Status: Acute Comment: Will get CT head, and Consult Neurology if signs of deficit on CT and will do MRI. - Plan cont current plan of care, PT/OT, respiratory therapy, incentive spirometry, out of bed/ambulate, DVT proph w/heparin * . - Discharge Day Encounter end time: 10:35 Review of Systems - Review of Systems Eyes: Vision Change ENT: negative: Ear Pain, Ear Discharge, Nose Pain, Nose Discharge, Nose Congestion, Mouth Pain, Mouth Swelling, Throat Pain, Throat Swelling, Other Respiratory: negative: Cough, Dry, Shortness of Breath, Hemoptysis, SOB with Excertion, Pleuritic Pain, Sputum, Wheezing Cardiovascular: chest pain. negative: palpitations, orthopnea, paroxysmal nocturnal dyspnea, edema, light headedness, other Gastrointestinal: negative: Nausea, Vomiting, Abdominal Pain, Diarrhea, Constipation, Melena, Hematochezia, Other Genitourinary: negative: Dysuria, Frequency, Incontinence, Hematuria, Retention , Other Musculoskeletal: negative: Neck Pain, Shoulder Pain, Arm Pain, Back Pain, Hand Pain, Leg Pain, Foot Pain, Other Skin: negative: Rash, Lesions, Noam, Bruising, Other - Medications/Allergies Allergies/Adverse Reactions: Allergies Allergy/AdvReac Type Severity Reaction Status Date / Time Sulfa (Sulfonamide Allergy Verified 01/16/18 00:36 Antibiotics) Medications: Current Medications Acetaminophen (Tylenol) 650 mg PO Q6H PRN PRN Reason: Headache/Fever Or Mild Pain Hydrocodone Bitart/Acetaminophen ([place] 5/325) 1 tab PO Q4H PRN PRN Reason: Moderate Pain (4-6) Last Admin: 01/20/18 06:19 Dose: 1 tab Hydrocodone Bitart/Acetaminophen ([place] 5/325) 2 tab PO Q4H PRN PRN Reason: Severe Pain (7-10) Last Admin: 01/19/18 22:56 Dose: 2 tab Al Hydroxide/Mg Hydroxide (Maalox) 30 ml PO Q4H PRN PRN Reason: Indigestion Albuterol/Ipratropium (Duoneb) 3 ml NEB Q6H PRN PRN Reason: SHORTNESS OF BREATH Aspirin (Aspirin) 325 mg PO DAILY [facility] Last Admin: 01/20/18 09:46 Dose: 325 mg Atorvastatin Calcium (Lipitor) 40 mg PO HS [facility] Last Admin: 01/19/18 22:56 Dose: 40 mg Bisacodyl (Dulcolax) 10 mg PO Q12H PRN PRN Reason: Constipation Bisacodyl (Dulcolax) 10 mg [place] Q12H PRN PRN Reason: Constipation Dextrose/Water (Dextrose 50%) 25 gm SLOW IVP PRN PRN PRN Reason: PER HYPOGLYCEMIC PROTOCOL Famotidine (Pepcid) 20 mg SLOW IVP Q12HR [facility] Last Admin: 01/20/18 09:46 Dose: 20 mg Furosemide (Lasix) 40 mg SLOW IVP 0600,1400 [facility] Stop: 01/21/18 06:01 Glucagon (Glucagon) 1 mg SC PRN PRN PRN Reason: PER HYPOGLYCEMIC PROTOCOL Guaifenesin/Dextromethorphan (Robitussin Dm) 15 ml PO Q4H PRN PRN Reason: Cough Dextrose/Water (D5w) 1,000 mls @ 0 mls/hr IV INF PRN; As Directed PRN Reason: PRN HYPOGLYCEMIC PROTOCOL Insulin Human Regular (Humulin R) 0 units SC Q4H PRN; Protocol PRN Reason: POST CABG SLIDING SCALE Ketorolac Tromethamine (Toradol) 30 mg IVP Q6HR [facility] Stop: 01/22/18 06:01 Last Admin: 01/20/18 05:18 Dose: 30 mg Metoprolol Tartrate (Lopressor) 12.5 mg PO BID [facility] Last Admin: 01/20/18 09:46 Dose: 12.5 mg Ondansetron HCl (Zofran) 4 mg IVP Q6H PRN PRN Reason: Nausea/Vomiting Sodium Chloride (Flush - Normal Saline) 10 ml IVF Q12HR [facility] Last Admin: 01/20/18 09:47 Dose: 10 ml
[2018-01-20] MEDS: Insulin Regular 300 UNITS/3 ML VIAL SC PRN ×2 (12:53→17:07)
--- NOTE | 2018-01-20 13:27 | CT ---
CT BRAIN WITHOUT CONTRAST: HISTORY: A 37-year-old male with recent CABG. Complains of double vision in the right eye. Exam is requested to evaluate for intracranial hemorrhage. FINDINGS: No evidence of infarct, hemorrhage, midline shift, or abnormal extraaxial fluid collection is seen. The ventricular size is normal, and the basilar cisterns are patent. The bony calvarium is intact. There is mild mucosal disease in the anterior ethmoid air cells. The remainder of the visualized par anasal sinuses and mastoid air cells are otherwise well aerated and clear. IMPRESSION: No CT evidence of acute intracranial process. POS: [facility]
[2018-01-20] MEDS: Furosemide 40 MG/4 ML VIAL SLOW IVP SCH (14:50)
[2018-01-20 16:34] LABS: Hemoglobin 9.2 g/dL (14.0-18.0); Platelet Count 171 thou/uL (130-400)
[2018-01-20 16:53] LABS: Calc. Creatinine Clearance 205 mL/min (70-130); Estimated GFR-MDRD Greater than 90
[2018-01-20] MEDS ORDERED: Sodium Chloride 0.9% 500 ML IVPB SCH (17:00)
--- NOTE | 2018-01-20 17:05 | PRG ---
DATE OF SERVICE: 01/20/2018 SUBJECTIVE: Mr. Pham is doing well post-extubation. He had no complaints this morning. OBJECTIVE: VITAL SIGNS: He is afebrile, heart rate was 100, oximetry was 100% on room air, respiratory rate is 19. He still has chest tubes in place when I evaluated him this morning. LUNGS: Clear. HEART: Regular rhythm. ABDOMEN: Soft. EXTREMITIES: Without asymmetry. NEURO: Nonfocal. He did have a slight lateral gaze deviation. He is unaware of this is his norm bu t he is also complaining of diplopia today, so I have asked Dr. Bowman to look at him later today. LABORATORY DATA: His white count is 7.5, hemoglobin 9.3, platelets 153. Sodium 138, potassium 3.8, chloride 113, bicarbonate 21, BUN 11, creatinine 0.85. IMPRESSION: 1. Status post coronary artery bypass grafting, clinically stable. 2. Diplopia. His head CT today was reviewed and is negative. Chest radiograph shows as expected bi basilar atelectasis in the gentleman of his size. PLAN: If stable, transfer out of the Critical Care Unit in my opinion.
[2018-01-20] MEDS: Atorvastatin Calcium 40 MG TAB PO SCH (20:35)
[2018-01-20] MEDS: Famotidine 20 MG TAB PO SCH (20:35)
[2018-01-21 05:39] LABS: #Eosinphils 0.1 thou/uL (0.0-0.7); #Lymphocytes 1.8 thou/uL (1.20-3.40); #Monocytes 1.2 thou/uL (0.11-0.59); #Neutrophils 7.1 thou/uL (1.40-6.50); %Basophils 0.2 % (0.0-1.0); %Lymphocytes 17.8 % (21.0-51.0); %Monocytes 11.3 % (0.0-10.0); %Neutrophils 69.7 % (42.0-75.0); Hemoglobin 8.6 g/dL (14.0-18.0); Mean Corpuscular HGB CONC 31.9 g/dL (32.0-36.0); Mean Corpuscular Hemoglobin 28.1 pg (27.0-31.0); Mean Corpuscular Volume 88.1 fl (80.0-94.0); Mean Platelet Volume 7.3 fL (7.4-10.4); Platelet Count 179 thou/uL (130-400); RBC Distribution Width 11.8 % (11.5-14.5); Red Blood Cell (RBC) Count 3.06 mill/uL (4.70-6.10); White Blood Cell (WBC) Count 10.2 thou/uL (4.8-10.8)
[2018-01-21 05:52] LABS: Anion Gap 9 mmol/L (10-20); BUN (Urea Nitrogen) 12 mg/dL (8.9-20.6); Calc. Creatinine Clearance 218 mL/min (70-130); Calcium 8.2 mg/dL (7.8-10.44); Carbon Dioxide 22 mmol/L (22-29); Chloride 106 mmol/L (98-107); Estimated GFR-MDRD Greater than 90; Glucose 182 mg/dL (70-105); Sodium 133 mmol/L (136-145)
[2018-01-21] MEDS: Ketorolac Tromethamine 30 MG/ML VIAL IVP SCH ×3 (05:54→17:29)
[2018-01-21] MEDS: Furosemide 40 MG/4 ML VIAL SLOW IVP SCH (05:54)
[2018-01-21] MEDS ORDERED: Metolazone 5 MG TAB PO SCH (07:00)
--- NOTE | 2018-01-21 07:45 | RAD ---
UPRIGHT PORTABLE CHEST 1 VIEW: HISTORY: A 37-year-old male with a history of postop open heart. FINDINGS: Left chest tubes are again noted. Possible very tiny apical pneumothorax. Left subclavian catheter in place. Minimal pleural and parenchymal opacity changes in both bases slightly more prominent on t he left side. IMPRESSION: Slightly improved bibasilar pleural and parenchymal postoperative changes. Possible very tiny left a pical pneumothorax. No acute process. POS: OFF
[2018-01-21] MEDS: Famotidine 20 MG TAB PO SCH ×2 (07:56→20:46)
[2018-01-21] MEDS: Metoprolol Tartrate 25 MG TAB PO SCH ×2 (07:57→20:46)
[2018-01-21] MEDS: Aspirin 325 MG TAB PO SCH (07:57)
[2018-01-21] MEDS: Potassium Chloride 20 MEQ TAB PO SCH ×2 (07:57→17:29)
[2018-01-21] MEDS: Furosemide 40 MG TAB PO SCH (08:00)
--- NOTE | 2018-01-21 15:34 | PRG ---
DATE OF SERVICE: 01/21/2018 SUBJECTIVE: Mr. Pham is doing reasonably well. He has a patch on his right eye. Dr. 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 Head CT did not show a bleed. Chest radiograph from today was reviewed. There is a tiny apical pneumothorax. His atelectatic changes are improved. He is using an incentive spirometer. OBJECTIVE: LUNGS: Clear. HEART: Regular rhythm. ABDOMEN: Soft. LABORATORY DATA: White count 10.2, hemoglobin 8.6, platelets 179. Sodium 133, potassium 4, chloride 106, bicarbonate 22, BUN 12, creatinine 0.9. IMPRESSION: 1. Status post coronary artery bypass grafting. 2. Diabetes. 3. Third nerve palsy. There is no real reason to do an MRI at this point in time unless Dr. Bowman needed it. He recommended follow up with him in the near future. We will continue with the current supportive care and post-coronary artery bypass grafting rehabilita tion.
--- NOTE | 2018-01-21 15:38 | PDOC.PN ---
- Subjective Encounter Start Date: 01/21/18 Encounter Start Time: 09:00 Patient is seen today, alert and oriented. Pt has Reduced/Blurred vision Right Eye, pt Seen by Ophthalmology. Pt is admitted with NSTEMI and s/p CABG this admission. - Objective MAR Reviewed: Yes Vital Signs & Weight: Vital Signs (12 hours) Temp Pulse Pulse Pulse Resp BP BP 01/21/18 13:59 113 H 105 H 107/62 109/61 01/21/18 12:14 98.2 F 109 H 19 01/21/18 08:35 98.7 F 114 H 16 01/21/18 08:25 121 H 116 H 127/82 110/75 01/21/18 07:43 98.7 F 114 H 16 01/21/18 05:49 112 H 16 01/21/18 04:24 98.7 F 113 H 16 BP Pulse Ox Pulse Ox Pulse Ox 01/21/18 13:59 100 100 01/21/18 12:14 145/84 H 99 01/21/18 08:35 97 01/21/18 08:25 97 97 01/21/18 07:43 125/71 97 01/21/18 05:49 112/63 01/21/18 04:24 97/62 96 Weight Admit Weight 281 lb Weight 299 lb 1.6 oz Most Recent Monitor Data Heart Rate from ECG 112 NIBP 105/75 NIBP BP-Mean 84 Respiration from ECG 24 SpO2 100 I&O: 01/20/18 01/21/18 01/22/18 06:59 06:59 06:59 Intake Total 2617.4 2261 Output Total 1340 2290 450 Balance 1277.4 -29 -450 Result Diagrams: 01/21/18 05:06 01/21/18 05:06 Additional Labs: Accuchecks 01/21/18 01/21/18 01/21/18 12:07 08:20 05:48 POC Glucose 252 H 238 H 178 H 01/20/18 01/20/18 21:05 16:06 POC Glucose 244 H 192 H Radiology Reviewed by me: Yes Phys Exam - Physical Examination HEENT: PERRLA, moist MMs Neck: no nodes, no JVD Respiratory: no wheezing, no rales Cardiovascular: RRR, no significant murmur Gastrointestinal: soft, non-tender Musculoskeletal: no edema, pulses present Neurological: non-focal Psychiatric: normal affect Skin: no rash Dx/Plan (1) NSTEMI (non-ST elevated myocardial infarction) Code(s): I21.4 - NON-ST ELEVATION (NSTEMI) MYOCARDIAL INFARCTION Status: Acute Comment: On aspirin, lovenox, statin, beta otilia and ARB. CABG today , returned from surgery, No chest pain. (2) DM2 (diabetes mellitus, type 2) Status: Chronic Comment: On accuchecks, insulin sliding scale. (3) HTN (hypertension) Code(s): I10 - ESSENTIAL (PRIMARY) HYPERTENSION Status: Chronic Comment: controlled (4) Obesity (BMI 30-39.9) Code(s): E66.9 - OBESITY, UNSPECIFIED Status: Chronic (5) S/P CABG (coronary artery bypass graft) Code(s): Z95.1 - PRESENCE OF AORTOCORONARY BYPASS GRAFT Status: Acute Comment: Pt will be continued on Meds per CT sugrery. Aspirin/ BB. 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 No evidence of TIA . - Plan cont current plan of care, PT/OT, marriage and family social worker, incentive spirometry, DVT proph w/heparin * . - Discharge Day Encounter end time: 09:35 Review of Systems - Review of Systems Eyes: negative: Pain, Vision Change, Conjunctivae Inflammation, Eyelid Inflammation, Redness, Other ENT: negative: Ear Pain, Ear Discharge, Nose Pain, Nose Discharge, Nose Congestion, Mouth Pain, Mouth Swelling, Throat Pain, Throat Swelling, Other Respiratory: negative: Cough, Dry, Shortness of Breath, Hemoptysis, SOB with Excertion, Pleuritic Pain, Sputum, Wheezing Cardiovascular: negative: chest pain, palpitations, orthopnea, paroxysmal nocturnal dyspnea, edema, light headedness, other Gastrointestinal: negative: Nausea, Vomiting, Abdominal Pain, Diarrhea, Constipation, Melena, Hematochezia, Other Musculoskeletal: negative: Neck Pain, Shoulder Pain, Arm Pain, Back Pain, Hand Pain, Leg Pain, Foot Pain, Other - Medications/Allergies Allergies/Adverse Reactions: Allergies Allergy/AdvReac Type Severity Reaction Status Date / Time Sulfa (Sulfonamide Allergy Verified 01/16/18 00:36 Antibiotics) Medications: Current Medications Acetaminophen (Tylenol) 650 mg PO Q6H PRN PRN Reason: Headache/Fever Or Mild Pain Hydrocodone Bitart/Acetaminophen ([place] 5/325) 1 tab PO Q4H PRN PRN Reason: Moderate Pain (4-6) Last Admin: 01/20/18 06:19 Dose: 1 tab Hydrocodone Bitart/Acetaminophen ([place] 5/325) 2 tab PO Q4H PRN PRN Reason: Severe Pain (7-10) Last Admin: 01/20/18 23:18 Dose: 2 tab Al Hydroxide/Mg Hydroxide (Maalox) 30 ml PO Q4H PRN PRN Reason: Indigestion Albuterol/Ipratropium (Duoneb) 3 ml NEB Q6H PRN PRN Reason: SHORTNESS OF BREATH Aspirin (Aspirin) 325 mg PO DAILY [facility] Last Admin: 01/21/18 07:57 Dose: 325 mg Atorvastatin Calcium (Lipitor) 40 mg PO HS [facility] Last Admin: 01/20/18 20:35 Dose: 40 mg Bisacodyl (Dulcolax) 10 mg PO Q12H PRN PRN Reason: Constipation Bisacodyl (Dulcolax) 10 mg [place] Q12H PRN PRN Reason: Constipation Dextrose/Water (Dextrose 50%) 25 gm SLOW IVP PRN PRN PRN Reason: PER HYPOGLYCEMIC PROTOCOL Famotidine (Pepcid) 20 mg PO Q12HR [facility] Last Admin: 01/21/18 07:56 Dose: 20 mg Furosemide (Lasix) 40 mg PO DAILY[facility] Stop: 01/23/18 07:31 Last Admin: 01/21/18 08:00 Dose: 40 mg Glucagon (Glucagon) 1 mg SC PRN PRN PRN Reason: PER HYPOGLYCEMIC PROTOCOL Guaifenesin/Dextromethorphan (Robitussin Dm) 15 ml PO Q4H PRN PRN Reason: Cough Dextrose/Water (D5w) 1,000 mls @ 0 mls/hr IV INF PRN; As Directed PRN Reason: PRN HYPOGLYCEMIC PROTOCOL Insulin Human Regular (Humulin R) 0 units SC Q4H PRN; Protocol PRN Reason: POST CABG SLIDING SCALE Last Admin: 01/20/18 17:07 Dose: 4 units Ketorolac Tromethamine (Toradol) 30 mg IVP Q6HR [facility] Stop: 01/22/18 06:01 Last Admin: 01/21/18 12:16 Dose: 30 mg Metoprolol Tartrate (Lopressor) 12.5 mg PO BID [facility] Last Admin: 01/21/18 07:57 Dose: 12.5 mg Ondansetron HCl (Zofran) 4 mg IVP Q6H PRN PRN Reason: Nausea/Vomiting Potassium Chloride (K-Dur) 20 meq PO BID-[facility] Stop: 01/23/18 17:01 Last Admin: 01/21/18 07:57 Dose: 20 meq Sodium Chloride (Flush - Normal Saline) 10 ml IVF Q12HR [facility] Last Admin: 01/21/18 08:00 Dose: 10 ml Sodium Chloride (Flush - Normal Saline) 10 ml IVF PRN PRN PRN Reason: Saline Flush Last Admin: 01/21/18 05:55 Dose: 10 ml
[2018-01-21 15:48] VITALS: BMI 40.5
[2018-01-21] MEDS: Insulin Regular 300 UNITS/3 ML VIAL SC PRN (16:39)
[2018-01-21] MEDS: Atorvastatin Calcium 40 MG TAB PO SCH (20:46)
[2018-01-21] MEDS: HYDROcodone/Acetaminophen 5/325 mg Tablet PO PRN (20:46)
[2018-01-22] MEDS: Ketorolac Tromethamine 30 MG/ML VIAL IVP SCH ×2 (00:29→05:43)
[2018-01-22] MEDS: HYDROcodone/Acetaminophen 5/325 mg Tablet PO PRN ×2 (01:56→21:03)
[2018-01-22 05:13] LABS: #Eosinphils 0.2 thou/uL (0.0-0.7); #Lymphocytes 1.7 thou/uL (1.20-3.40); #Monocytes 0.8 thou/uL (0.11-0.59); #Neutrophils 5.8 thou/uL (1.40-6.50); %Basophils 0.4 % (0.0-1.0); %Eosinophils 2.6 % (0.0-10.0); %Lymphocytes 19.6 % (21.0-51.0); %Neutrophils 68.5 % (42.0-75.0); Hemoglobin 8.5 g/dL (14.0-18.0); Mean Corpuscular HGB CONC 31.9 g/dL (32.0-36.0); Mean Corpuscular Hemoglobin 27.8 pg (27.0-31.0); Mean Corpuscular Volume 87.2 fl (80.0-94.0); Mean Platelet Volume 7.3 fL (7.4-10.4); Platelet Count 194 thou/uL (130-400); RBC Distribution Width 11.7 % (11.5-14.5); Red Blood Cell (RBC) Count 3.07 mill/uL (4.70-6.10); White Blood Cell (WBC) Count 8.5 thou/uL (4.8-10.8)
[2018-01-22 05:25] LABS: Anion Gap 10 mmol/L (10-20); BUN (Urea Nitrogen) 11 mg/dL (8.9-20.6); Calc. Creatinine Clearance 215 mL/min (70-130); Calcium 8.5 mg/dL (7.8-10.44); Carbon Dioxide 27 mmol/L (22-29); Chloride 102 mmol/L (98-107); Estimated GFR-MDRD Greater than 90; Glucose 233 mg/dL (70-105); Potassium 3.5 mmol/L (3.5-5.1); Sodium 135 mmol/L (136-145)
[2018-01-22] MEDS: Potassium Chloride 20 MEQ TAB PO SCH ×2 (08:12→16:23)
[2018-01-22] MEDS: Metoprolol Tartrate 25 MG TAB PO SCH ×2 (08:12→21:09)
[2018-01-22] MEDS: Furosemide 40 MG TAB PO SCH (08:12)
[2018-01-22] MEDS: Famotidine 20 MG TAB PO SCH ×2 (08:12→21:00)
[2018-01-22] MEDS: Aspirin 325 MG TAB PO SCH (08:12)
--- NOTE | 2018-01-22 11:16 | PRG ---
DATE OF SERVICE: 01/22/2018 He is awake, alert, responsive, in no distress. A third nerve palsy. PHYSICAL EXAMINATION: VITAL SIGNS: Temperature is 98, sats 95, respiration 15, blood pressure 133/55. CHEST: Chest reveals decreased breath sounds, no wheezing. CARDIAC: Normal S1, S2. His electrolytes are normal. H&H stable. IMPRESSION: 1. Status post coronary artery bypass graft. 2. Diabetes. 3. Obesity. 4. Patch on the right eye, third nerve palsy. PLAN: Continue PT and supportive care, eventually placement.
[2018-01-22] MEDS: Insulin Regular 300 UNITS/3 ML VIAL SC PRN ×3 (13:21→23:17)
[2018-01-22 14:18] LABS: Hemoglobin 9.7 g/dL (14.0-18.0); Platelet Count 227 thou/uL (130-400)
[2018-01-22 14:37] LABS: Calc. Creatinine Clearance 188 mL/min (70-130); Estimated GFR-MDRD Greater than 90
--- NOTE | 2018-01-22 14:50 | PDOC.PN ---
- Subjective Encounter Start Date: 01/22/18 Encounter Start Time: 13:00 pATIENT is seen today, following CABG 2 days ago, he is having right double vsiison due to 3rd nerve plasy as he is not able to adduct his right eye. - Objective MAR Reviewed: Yes Vital Signs & Weight: Vital Signs (12 hours) Temp Pulse Pulse Pulse Resp BP BP 01/22/18 13:21 108 H 102 H 115/74 120/74 01/22/18 12:00 98.1 F 99 18 01/22/18 08:23 114 H 112 H 134/79 128/77 01/22/18 08:00 97.8 F 101 H 18 01/22/18 04:00 98.4 F 94 15 BP Pulse Ox Pulse Ox Pulse Ox 01/22/18 13:21 98 99 01/22/18 12:00 117/74 99 01/22/18 08:23 98 100 01/22/18 08:00 121/71 100 01/22/18 04:00 103/55 L 95 Weight Admit Weight 281 lb Weight 289 lb 1.6 oz Most Recent Monitor Data Heart Rate from ECG 112 NIBP 105/75 NIBP BP-Mean 84 Respiration from ECG 24 SpO2 100 I&O: 01/21/18 01/22/18 01/23/18 06:59 06:59 06:59 Intake Total 2261 752 550 Output Total 2290 850 Balance -29 -98 550 Result Diagrams: 01/22/18 14:10 01/22/18 14:10 Additional Labs: Accuchecks 01/22/18 01/22/18 01/21/18 11:32 06:41 20:50 POC Glucose 277 H 223 H 239 H 01/21/18 16:26 POC Glucose 216 H Radiology Reviewed by me: Yes Phys Exam - Physical Examination HEENT: moist MMs Failure of 3rd eye to adduct causing blurred vision. Neck: no nodes, no JVD Respiratory: no wheezing, no rales Cardiovascular: RRR, no significant murmur Gastrointestinal: soft, non-tender Musculoskeletal: no edema, pulses present Neurological: non-focal, normal sensation Lymphatic: no nodes Dx/Plan (1) NSTEMI (non-ST elevated myocardial infarction) Code(s): I21.4 - NON-ST ELEVATION (NSTEMI) MYOCARDIAL INFARCTION Status: Acute Comment: On aspirin, lovenox, statin, beta otilia and ARB. CABG today , returned from surgery, No chest pain. (2) DM2 (diabetes mellitus, type 2) Status: Chronic Comment: On accuchecks, insulin sliding scale. Added GLipizide today, keep BG 140-180 (3) HTN (hypertension) Code(s): I10 - ESSENTIAL (PRIMARY) HYPERTENSION Status: Chronic Comment: controlled (4) Obesity (BMI 30-39.9) Code(s): E66.9 - OBESITY, UNSPECIFIED Status: Chronic (5) S/P CABG (coronary artery bypass graft) Code(s): Z95.1 - PRESENCE OF AORTOCORONARY BYPASS GRAFT Status: Acute Comment: Pt will be continued on Meds per CT sugrery. Aspirin/ BB. 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 Possible reasons for 3rd eye palsy is Diabetes poor control, aneurysm and Midbrain ischemic stroke, will do MRI of brain and MRA neck and brain. Will also consult neurology. - Plan cont current plan of care, PT/OT, professor of social work, incentive spirometry, out of bed/ambulate, DVT proph w/lovenox * . - Discharge Day Encounter end time: 13:35 Review of Systems - Review of Systems Constitutional: negative: fever, chills, sweats, weakness, malaise, other Eyes: Vision Change. negative: Pain, Conjunctivae Inflammation, Eyelid Inflammation, Redness, Other ENT: negative: Ear Pain, Ear Discharge, Nose Pain, Nose Discharge, Nose Congestion, Mouth Pain, Mouth Swelling, Throat Pain, Throat Swelling, Other Cardiovascular: negative: chest pain, palpitations, orthopnea, paroxysmal nocturnal dyspnea, edema, light headedness, other Gastrointestinal: negative: Nausea, Vomiting, Abdominal Pain, Diarrhea, Constipation, Melena, Hematochezia, Other - Medications/Allergies Allergies/Adverse Reactions: Allergies Allergy/AdvReac Type Severity Reaction Status Date / Time iodine Allergy Verified 01/22/18 07:31 Sulfa (Sulfonamide Allergy Verified 01/16/18 00:36 Antibiotics) Medications: Current Medications Acetaminophen (Tylenol) 650 mg PO Q6H PRN PRN Reason: Headache/Fever Or Mild Pain Hydrocodone Bitart/Acetaminophen ([place] 5/325) 1 tab PO Q4H PRN PRN Reason: Moderate Pain (4-6) Last Admin: 01/22/18 01:56 Dose: 1 tab Hydrocodone Bitart/Acetaminophen ([place] 5/325) 2 tab PO Q4H PRN PRN Reason: Severe Pain (7-10) Last Admin: 01/20/18 23:18 Dose: 2 tab Al Hydroxide/Mg Hydroxide (Maalox) 30 ml PO Q4H PRN PRN Reason: Indigestion Albuterol/Ipratropium (Duoneb) 3 ml NEB Q6H PRN PRN Reason: SHORTNESS OF BREATH Aspirin (Aspirin) 325 mg PO DAILY [facility] Last Admin: 01/22/18 08:12 Dose: 325 mg Atorvastatin Calcium (Lipitor) 40 mg PO [facility] Last Admin: 01/21/18 20:46 Dose: 40 mg Bisacodyl (Dulcolax) 10 mg PO Q12H PRN PRN Reason: Constipation Bisacodyl (Dulcolax) 10 mg [place] Q12H PRN PRN Reason: Constipation Dextrose/Water (Dextrose 50%) 25 gm SLOW IVP PRN PRN PRN Reason: PER HYPOGLYCEMIC PROTOCOL Famotidine (Pepcid) 20 mg PO Q12HR [facility] Last Admin: 01/22/18 08:12 Dose: 20 mg Furosemide (Lasix) 40 mg PO DAILY-[facility] Stop: 01/23/18 07:31 Last Admin: 01/22/18 08:12 Dose: 40 mg Glipizide (Glucotrol Xl) 5 mg PO QA-[facility] Glucagon (Glucagon) 1 mg SC PRN PRN PRN Reason: PER HYPOGLYCEMIC PROTOCOL Guaifenesin/Dextromethorphan (Robitussin Dm) 15 ml PO Q4H PRN PRN Reason: Cough Dextrose/Water (D5w) 1,000 mls @ 0 mls/hr IV INF PRN; As Directed PRN Reason: PRN HYPOGLYCEMIC PROTOCOL Insulin Human Regular (Humulin R) 0 units [place] Q4H PRN; Protocol PRN Reason: POST CABG SLIDING SCALE Last Admin: 01/22/18 13:21 Dose: 8 units Metoprolol Tartrate (Lopressor) 37.5 mg PO BID [facility] Ondansetron HCl (Zofran) 4 mg IVP Q6H PRN PRN Reason: Nausea/Vomiting Potassium Chloride (K-Dur) 20 meq PO BID-[facility] Stop: 01/23/18 17:01 Last Admin: 01/22/18 08:12 Dose: 20 meq Sodium Chloride (Flush - Normal Saline) 10 ml IVF Q12HR [facility] Last Admin: 01/22/18 08:12 Dose: 10 ml Sodium Chloride (Flush - Normal Saline) 10 ml IVF PRN PRN PRN Reason: Saline Flush Last Admin: 01/22/18 05:43 Dose: 10 ml
[2018-01-22] MEDS: Atorvastatin Calcium 40 MG TAB PO SCH (21:03)
--- NOTE | 2018-01-22 23:26 | CON ---
DATE OF CONSULTATION: 01/22/2018 CONSULTING PHYSICIAN: Hospitalist Service. 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 PLAN: 1. MRI of the brain with MRA. 2. Sed rate. HISTORY OF PRESENT ILLNESS: Mr. Pham is a 37-year-old man with a past history of coronary artery disease, hyperlipidemia, diabetes, hypertension, recently underwent CABG. He developed double vision with no orbital pain. He denies any headache, nausea, vomiting, dizziness, slurred speech, difficul ty swallowing, lateralized weakness or numbness. He has not had anything like this in the past. PAST MEDICAL HISTORY: As listed above. ALLERGIES: SULFA, IODINE. SOCIAL HISTORY: Unremarkable. FAMILY HISTORY: Unremarkable. MEDICATION LIST: Reviewed. REVIEW OF SYSTEMS: Otherwise, negative for any other focal neurologic symptoms. PHYSICAL EXAMINATION: GENERAL: Moderately overweight young man in no acute distress. HEENT: Pupils are equal in size. Conjunctivae clear. Oropharynx clear. Cranium normocephalic and atraumatic. NECK: Supple. EXTREMITIES: No cyanosis. NEUROLOGIC: He is alert and appropriate. His speech is fluent and clear. Cranial nerve exam shows a partial deficit in the right third nerve distribution. He does not have complete ptosis of the rig ht eye only partial in nature. Sensation and other function around the face is intact. Motor exam s hows good strength bilaterally. Sensation in the extremities was intact. No tremor or dysmetria was present. He was able to walk independently. No abnormal movements were seen. LABORATORY STUDIES: Unremarkable CBC, other than some anemia and serum chemistries. SUMMARY: Given the pupil sparing and partial nature of his symptoms, I suspect this is most likely r elated to a diabetic ischemic third nerve palsy, probably improve with a bit of time for rule out oth er possibilities such as a compressive lesion or inflammation.
[2018-01-23 05:52] LABS: #Basophils 0.1 thou/uL (0.0-0.2); #Eosinphils 0.3 thou/uL (0.0-0.7); #Lymphocytes 1.9 thou/uL (1.20-3.40); #Monocytes 0.8 thou/uL (0.11-0.59); #Neutrophils 5.2 thou/uL (1.40-6.50); %Basophils 0.6 % (0.0-1.0); %Eosinophils 4.1 % (0.0-10.0); %Lymphocytes 23.2 % (21.0-51.0); %Monocytes 9.6 % (0.0-10.0); %Neutrophils 62.6 % (42.0-75.0); Hemoglobin 9.4 g/dL (14.0-18.0); Mean Corpuscular Hemoglobin 27.9 pg (27.0-31.0); Mean Corpuscular Volume 87.2 fl (80.0-94.0); Platelet Count 263 thou/uL (130-400); RBC Distribution Width 11.7 % (11.5-14.5); Red Blood Cell (RBC) Count 3.38 mill/uL (4.70-6.10); White Blood Cell (WBC) Count 8.4 thou/uL (4.8-10.8)
[2018-01-23 06:00] LABS: Anion Gap 10 mmol/L (10-20); BUN (Urea Nitrogen) 11 mg/dL (8.9-20.6); Calc. Creatinine Clearance 217 mL/min (70-130); Calcium 8.9 mg/dL (7.8-10.44); Carbon Dioxide 28 mmol/L (22-29); Chloride 102 mmol/L (98-107); Estimated GFR-MDRD Greater than 90; Glucose 156 mg/dL (70-105); Potassium 3.6 mmol/L (3.5-5.1); Sodium 136 mmol/L (136-145)
[2018-01-23] MEDS: Potassium Chloride 20 MEQ TAB PO SCH ×2 (08:47→17:54)
[2018-01-23] MEDS: Furosemide 40 MG TAB PO SCH (08:47)
[2018-01-23] MEDS: Metoprolol Tartrate 25 MG TAB PO SCH ×2 (08:48→20:44)
[2018-01-23] MEDS: Aspirin 325 MG TAB PO SCH (08:49)
[2018-01-23] MEDS: Famotidine 20 MG TAB PO SCH ×2 (08:49→20:44)
[2018-01-23] MEDS: HYDROcodone/Acetaminophen 5/325 mg Tablet PO PRN ×2 (08:50→20:44)
[2018-01-23] MEDS: Insulin Regular 300 UNITS/3 ML VIAL SC PRN ×3 (12:42→21:40)
--- NOTE | 2018-01-23 14:49 | PDOC.PN ---
- Subjective Encounter Start Date: 01/23/18 Encounter Start Time: 10:00 Patient is seen today, alert and oriented. He still has right Eye. - Objective MAR Reviewed: Yes Vital Signs & Weight: Vital Signs (12 hours) Temp Pulse Pulse Pulse Resp BP BP 01/23/18 13:00 102 H 105 H 120/85 111/67 01/23/18 12:41 98.0 F 100 19 01/23/18 07:55 99.0 F 102 H 18 01/23/18 07:51 99.0 F 102 H 18 01/23/18 07:41 01/23/18 04:00 98.4 F 90 18 BP BP Pulse Ox Pulse Ox Pulse Ox 01/23/18 13:00 98 98 01/23/18 12:41 124/76 100 01/23/18 07:55 98 01/23/18 07:51 116/75 98 01/23/18 07:41 99 01/23/18 04:00 118/72 97 Weight Admit Weight 281 lb Weight 288 lb Most Recent Monitor Data Heart Rate from ECG 112 NIBP 105/75 NIBP BP-Mean 84 Respiration from ECG 24 SpO2 100 I&O: 01/22/18 01/23/18 01/24/18 06:59 06:59 06:59 Intake Total 752 800 Output Total 850 Balance -98 800 Result Diagrams: 01/23/18 05:29 01/23/18 05:29 Additional Labs: Accuchecks 01/23/18 01/23/18 01/22/18 12:03 05:32 21:04 POC Glucose 220 H 137 H 239 H 01/22/18 16:47 POC Glucose 262 H Radiology Reviewed by me: Yes Phys Exam - Physical Examination HEENT: PERRLA, moist MMs Neck: no nodes, no JVD Respiratory: no wheezing, no rales Cardiovascular: RRR, no significant murmur Gastrointestinal: soft, non-tender Musculoskeletal: no edema, pulses present Neurological: non-focal, normal sensation Lymphatic: no nodes Psychiatric: normal affect, A&O x 3 Skin: no rash Dx/Plan (1) NSTEMI (non-ST elevated myocardial infarction) Code(s): I21.4 - NON-ST ELEVATION (NSTEMI) MYOCARDIAL INFARCTION Status: Acute Comment: On aspirin, lovenox, statin, beta otilia and ARB. CABG today , returned from surgery, No chest pain. (2) DM2 (diabetes mellitus, type 2) Status: Chronic Comment: On accuchecks, insulin sliding scale. Added GLipizide today, keep BG 140-180 (3) HTN (hypertension) Code(s): I10 - ESSENTIAL (PRIMARY) HYPERTENSION Status: Chronic Comment: controlled (4) Obesity (BMI 30-39.9) Code(s): E66.9 - OBESITY, UNSPECIFIED Status: Chronic (5) S/P CABG (coronary artery bypass graft) Code(s): Z95.1 - PRESENCE OF AORTOCORONARY BYPASS GRAFT Status: Acute Comment: Pt will be continued on Meds per CT sugrery. Aspirin/ BB. 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 Possible reasons for 3rd eye palsy is Diabetes poor control, aneurysm and Midbrain ischemic stroke, MRI, pt could not Fit in MRI. WIll leave it for neurology to decide if He needs MRI outpatient. - Plan cont current plan of care, plan discussed w/ family, PT/OT, medical social worker, respiratory therapy, incentive spirometry, out of bed/ambulate, DVT proph w/ lovenox * . - Discharge Day Encounter end time: 10:35 Review of Systems - Review of Systems Eyes: negative: Pain, Vision Change, Conjunctivae Inflammation, Eyelid Inflammation, Redness, Other ENT: negative: Ear Pain, Ear Discharge, Nose Pain, Nose Discharge, Nose Congestion, Mouth Pain, Mouth Swelling, Throat Pain, Throat Swelling, Other Respiratory: negative: Cough, Dry, Shortness of Breath, Hemoptysis, SOB with Excertion, Pleuritic Pain, Sputum, Wheezing Cardiovascular: negative: chest pain, palpitations, orthopnea, paroxysmal nocturnal dyspnea, edema, light headedness, other Gastrointestinal: negative: Nausea, Vomiting, Abdominal Pain, Diarrhea, Constipation, Melena, Hematochezia, Other Musculoskeletal: negative: Neck Pain, Shoulder Pain, Arm Pain, Back Pain, Hand Pain, Leg Pain, Foot Pain, Other - Medications/Allergies Allergies/Adverse Reactions: Allergies Allergy/AdvReac Type Severity Reaction Status Date / Time iodine Allergy Verified 01/22/18 07:31 Sulfa (Sulfonamide Allergy Verified 01/16/18 00:36 Antibiotics) Medications: Current Medications Acetaminophen (Tylenol) 650 mg PO Q6H PRN PRN Reason: Headache/Fever Or Mild Pain Hydrocodone Bitart/Acetaminophen ([place] 5/325) 1 tab PO Q4H PRN PRN Reason: Moderate Pain (4-6) Last Admin: 01/23/18 08:50 Dose: 1 tab Hydrocodone Bitart/Acetaminophen ([place] 5/325) 2 tab PO Q4H PRN PRN Reason: Severe Pain (7-10) Last Admin: 01/20/18 23:18 Dose: 2 tab Al Hydroxide/Mg Hydroxide (Maalox) 30 ml PO Q4H PRN PRN Reason: Indigestion Albuterol/Ipratropium (Duoneb) 3 ml NEB Q6H PRN PRN Reason: SHORTNESS OF BREATH Aspirin (Aspirin) 325 mg PO DAILY [facility] Last Admin: 01/23/18 08:49 Dose: 325 mg Atorvastatin Calcium (Lipitor) 40 mg PO HS [facility] Last Admin: 01/22/18 21:03 Dose: 40 mg Bisacodyl (Dulcolax) 10 mg PO Q12H PRN PRN Reason: Constipation Bisacodyl (Dulcolax) 10 mg [place] Q12H PRN PRN Reason: Constipation Dextrose/Water (Dextrose 50%) 25 gm SLOW IVP PRN PRN PRN Reason: PER HYPOGLYCEMIC PROTOCOL Famotidine (Pepcid) 20 mg PO Q12HR [facility] Last Admin: 01/23/18 08:49 Dose: 20 mg Glipizide (Glucotrol Xl) 5 mg PO QA-[facility] Last Admin: 01/23/18 08:47 Dose: 5 mg Glucagon (Glucagon) 1 mg SC PRN PRN PRN Reason: PER HYPOGLYCEMIC PROTOCOL Guaifenesin/Dextromethorphan (Robitussin Dm) 15 ml PO Q4H PRN PRN Reason: Cough Dextrose/Water (D5w) 1,000 mls @ 0 mls/hr IV INF PRN; As Directed PRN Reason: PRN HYPOGLYCEMIC PROTOCOL Insulin Human Regular (Humulin R) 0 units SC Q4H PRN; Protocol PRN Reason: POST CABG SLIDING SCALE Last Admin: 01/23/18 12:42 Dose: 6 units Metoprolol Tartrate (Lopressor) 37.5 mg PO BID [facility] Last Admin: 01/23/18 08:48 Dose: 37.5 mg Ondansetron HCl (Zofran) 4 mg IVP Q6H PRN PRN Reason: Nausea/Vomiting Potassium Chloride (K-Dur) 20 meq PO BID-[facility] Stop: 01/23/18 17:01 Last Admin: 01/23/18 08:47 Dose: 20 meq Sodium Chloride (Flush - Normal Saline) 10 ml IVF Q12HR [facility] Last Admin: 01/23/18 08:50 Dose: 10 ml Sodium Chloride (Flush - Normal Saline) 10 ml IVF PRN PRN PRN Reason: Saline Flush Last Admin: 01/22/18 05:43 Dose: 10 ml
--- NOTE | 2018-01-23 15:39 | PRG ---
DATE OF SERVICE: 01/23/2018 SUBJECTIVE: Gabriele Pham is doing well, awake, alert and responsive. No pain. OBJECTIVE: VITAL SIGNS: Sats 100% on room air, respirations 19, temperature 98, pulse 100, blood pressure 124/7 6. CHEST: Reveals decreased breath sounds, no wheezing. CARDIAC: Normal S1, S2, no gallops. ABDOMEN: Soft. LABORATORY DATA: White count 8000, hemoglobin and hematocrit 9 and 27. Electrolytes are normal. IMPRESSION: 1. Third nerve palsy. 2. Obesity. 3. Coronary artery bypass graft. PLAN: 1. Continue PT and supportive care. 2. Outpatient sleep study.
--- NOTE | 2018-01-23 17:31 | PDOC.CTH ---
Cardiology Progress Note - Subjective He is doing well. he has been walking the halls without issues. He has had BM's. - Objective Vital Signs Temp Pulse Pulse Pulse Resp BP BP 01/23/18 13:00 102 H 105 H 120/85 111/67 01/23/18 12:41 98.0 F 100 19 01/23/18 07:55 99.0 F 102 H 18 01/23/18 07:51 99.0 F 102 H 18 01/23/18 07:41 BP BP Pulse Ox Pulse Ox Pulse Ox 01/23/18 13:00 98 98 01/23/18 12:41 124/76 100 01/23/18 07:55 98 01/23/18 07:51 116/75 98 01/23/18 07:41 99 Admit Weight 281 lb Weight 288 lb 01/22/18 01/23/18 01/24/18 06:59 06:59 06:59 Intake Total 752 800 Output Total 850 Balance -98 800 - Physical Examination General/Neuro: alert & oriented x3, NAD, other: (patch right eye. ) Neck: no JVD present Lungs: CTA, unlabored respirations Heart: RRR Abdomen: NT/ND Extremities: + edema B (1+) - Telemetry Telemetry Rhythm: S tach - Labs Result Diagrams: 01/23/18 05:29 01/23/18 05:29 Troponin/CKMB CK-MB (CK-2) 46.6 ng/mL (0-6.6) H* 01/15/18 22:01 Troponin I 4.165 ng/mL (< 0.028) H* 01/16/18 03:52 - Assessment/Plan 1. NSTEMI 2. S/P CABG 3. 3rd nerve palsy 4. Diabetes PLAN: - Continue ASA/statin/BB, will add very low dose ACEI. - Increase PT as tolerated - Neurology following for 3rd nerve palsy. - May discharge any time from cardiac perspective .
[2018-01-23] MEDS: Atorvastatin Calcium 40 MG TAB PO SCH (20:44)
[2018-01-24 06:25] LABS: #Eosinphils 0.3 thou/uL (0.0-0.7); #Lymphocytes 1.7 thou/uL (1.20-3.40); #Monocytes 0.7 thou/uL (0.11-0.59); #Neutrophils 5.3 thou/uL (1.40-6.50); %Basophils 0.5 % (0.0-1.0); %Eosinophils 3.9 % (0.0-10.0); %Lymphocytes 21.2 % (21.0-51.0); %Monocytes 8.6 % (0.0-10.0); %Neutrophils 65.8 % (42.0-75.0); Hemoglobin 10.4 g/dL (14.0-18.0); Mean Corpuscular HGB CONC 32.5 g/dL (32.0-36.0); Mean Corpuscular Volume 86.1 fl (80.0-94.0); Platelet Count 354 thou/uL (130-400); RBC Distribution Width 11.8 % (11.5-14.5); Red Blood Cell (RBC) Count 3.73 mill/uL (4.70-6.10)
[2018-01-24 06:38] LABS: Anion Gap 13 mmol/L (10-20); BUN (Urea Nitrogen) 11 mg/dL (8.9-20.6); Calc. Creatinine Clearance 206 mL/min (70-130); Calcium 9.3 mg/dL (7.8-10.44); Carbon Dioxide 26 mmol/L (22-29); Chloride 99 mmol/L (98-107); Estimated GFR-MDRD Greater than 90; Glucose 212 mg/dL (70-105); Potassium 3.8 mmol/L (3.5-5.1); Sodium 134 mmol/L (136-145)
[2018-01-24] MEDS: Metoprolol Tartrate 25 MG TAB PO SCH (08:58)
[2018-01-24] MEDS: Famotidine 20 MG TAB PO SCH (08:58)
[2018-01-24] MEDS: Aspirin 325 MG TAB PO SCH (08:58)
[2018-01-24] MEDS ORDERED: Losartan 25 MG TAB PO SCH (09:00)
[2018-01-24] MEDS: HYDROcodone/Acetaminophen 5/325 mg Tablet PO PRN (09:02)
[2018-01-24] MEDS ORDERED: Metoprolol Tartrate 25 MG TAB PO SCH ×2 (09:24→10:45)
[2018-01-24] MEDS ORDERED: Metoprolol Tartrate 50 MG TAB PO SCH ×2 (09:45→21:00)
[2018-01-24 11:17] VITALS: BP 104/65; TEMP 98.5
[2018-01-24] MEDS: Insulin Regular 300 UNITS/3 ML VIAL SC PRN (12:12)
--- NOTE | 2018-01-24 13:41 | PRG ---
DATE OF SERVICE: 01/24/2018 SUBJECTIVE: He is doing well, may be discharged home today. OBJECTIVE: VITAL SIGNS: Sats are 90% on room air, temperature 98, pulse 100, blood pressure is 104/65. CHEST: Reveals decreased breath sounds, no wheezing. CARDIAC: Normal S1, S2, no gallops. ABDOMEN: Soft. No masses. IMPRESSION: 1. Status post CABG. 2. Obesity. 3. Sleep apnea. If patient was to be discharged today, follow up with Dr. Verduzco to arrange for outpatient sleep study . In the meantime, supportive care and PT.
--- NOTE | 2018-01-24 15:43 | DIS ---
DATE OF ADMISSION: 01/16/2018 DATE OF DISCHARGE: 01/24/2018 ADMITTING DIAGNOSIS: Non-ST elevation myocardial infarction. DISCHARGE DIAGNOSES: Non-ST elevation myocardial infarction, status post coronary artery bypass rdaha t. SECONDARY DIAGNOSES: 1. Uncontrolled hypertension. 2. Right third cranial nerve palsy. 3. Type 2 diabetes mellitus, poorly controlled. 4. Obesity. CONSULTANTS INVOLVED IN THIS CARE: Dr. Dorian Parikh from Cardiology, Dr. Chan form Cardiot horacic Surgery, Dr. Johny Kennedy from Neurology, Dr. Regan Verduzco from Critical Care, Dr. Todd freeman from Cardiology, Ophthalmology consultation. HISTORY OF PRESENT ILLNESS AND HOSPITAL COURSE: In brief, this is a 37-year-old young -[place] male with no known past medical history except for type 2 diabetes mellitus, which is poorly contr olled. He presented to the hospital with acute onset of chest pain and in the ER, he was noted to owens ve elevated troponins. The patient was seen by Cardiology as there was ST segment changes and also C TA of chest which was negative for any PE. The patient was found to have a 3-vessel disease and he w as suggested for cardiac bypass. The patient was taken for cardiac surgery by Dr. Chan and th e patient showed good recovery following it, but the patient had evidence of right eye double vision and was noted to have a third cranial nerve palsy with paresis of the right medial rectus muscle. 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 Initially, CT of the head was done to rule out stroke, which was unremarkable. MRA and MRI was ordered, but the patie nt could not fit into the MRI machine, but based on the neurological exam, neurologist thought the pa tient has diabetic related complication. The patient was closely monitored for a few days and Cardio logy decided to discharge the patient to home. The patient is discharged home in stable condition an d advised to follow up with the primary care physician and advised to follow up with neurologist in 1 week and also with banquet houseperson in 1-2 weeks. The patient will follow up with Cardiothoracic Bi [facility] in 2 weeks. PHYSICAL EXAMINATION: On the day of discharge: VITAL SIGNS: Blood pressures are 104/65, heart rate of 100, respiratory rate 16, saturation 99%. GENERAL: The patient is moderately built, moderately nourished, does not appear to be in acute distr ess. CARDIOVASCULAR: S1, S2 normal. No murmurs, rubs or gallops. LUNGS: Bilateral air entry was equal. No wheezing, no crackles. ABDOMEN: Soft, nontender. No guarding, no rebound tenderness. Bowel sounds normal. MUSCULOSKELETAL: No calf tenderness. No pedal edema. No joint tenderness, no joint swelling. HOME MEDICATIONS: The patient was on metformin at home. NEW MEDICATIONS: 1. Aspirin 325 mg p.o. daily. 2. Atorvastatin 40 mg p.o. daily. 3. Glipizide 5 mg p.o. daily. 4. Hydrocodone p.r.n. for pain. 5. Losartan 12.5 mg p.o. daily. 6. Metoprolol tartrate 50 mg p.o. b.i.d. DISCHARGE INSTRUCTIONS: Continue activity as tolerated. Advised to follow up with Cardiology and Ca rdiothoracic Surgery in 2-3 weeks. Advised to follow up with Neurology in 1 week. Advised to follow up with primary care physician in 1-2 weeks. Continue with a cardiac diet. Advised to return to [facility] ER if any worsening changes in his eye or any chest pains. I have spent 35 minutes of this patient on the day of discharge.
[2018-01-24] MEDS ORDERED: metFORMIN 500 MG TAB PO SCH (17:00)
--- NOTE | 2018-01-24 17:12 | PDOC.CTH ---
Cardiology Progress Note - Subjective No new issues., Doing well. - Objective Vital Signs Temp Pulse Resp BP Pulse Ox 01/24/18 11:15 98.5 F 100 16 104/65 99 01/24/18 07:30 98.9 F 106 H 16 111/69 98 Admit Weight 281 lb Weight 280 lb 1.6 oz 01/23/18 01/24/18 01/25/18 06:59 06:59 06:59 Intake Total 800 Balance 800 - Physical Examination General/Neuro: alert & oriented x3, NAD Neck: no JVD present Lungs: unlabored respirations Heart: RRR Abdomen: NT/ND Extremities: + edema B (1+) - Telemetry Telemetry Rhythm: NSR - Labs Result Diagrams: 01/24/18 05:53 01/24/18 05:53 Troponin/CKMB CK-MB (CK-2) 46.6 ng/mL (0-6.6) H* 01/15/18 22:01 Troponin I 4.165 ng/mL (< 0.028) H* 01/16/18 03:52 - Assessment/Plan 1. NSTEMI 2. S/P CABG 3. 3rd nerve palsy 4. Diabetes PLAN: - Continue ASA/statin/BB/ACEI. - Increase PT as tolerated - Neurology following for 3rd nerve palsy. - May discharge any time from cardiac perspective .
== END 2018-01-24 15:17 | disposition home or self-care (01) | DRG 234 ==
LOC: ERS 20:51 → 2NO 23:10 → CCU 01-19 06:46 → 2NO 01-20 10:15
PROVIDERS: ADMIT Internal Medicine; ATTEND Internal Medicine
PROC: 4A023N7 Measurement of Cardiac Sampling and Pressure, Left Heart, Percutaneous Approach (ICD-10-PCS; 2018-01-18)
PROC: B2111ZZ Fluoroscopy of Multiple Coronary Arteries using Low Osmolar Contrast (ICD-10-PCS; 2018-01-18)
PROC: B2151ZZ Fluoroscopy of Left Heart using Low Osmolar Contrast (ICD-10-PCS; 2018-01-18)
PROC: 02100Z9 Bypass Coronary Artery, One Artery from Left Internal Mammary, Open Approach (ICD-10-PCS; principal; 2018-01-19)
PROC: 021209W Bypass Coronary Artery, Three Arteries from Aorta with Autologous Venous Tissue, Open Approach (ICD-10-PCS; 2018-01-19)
PROC: 06BP0ZZ Excision of Right Saphenous Vein, Open Approach (ICD-10-PCS; 2018-01-19)
PROC: 5A1221Z Performance of Cardiac Output, Continuous (ICD-10-PCS; 2018-01-19)
DX: I21.4 Non-ST elevation (NSTEMI) myocardial infarction (principal); Z68.41 Body mass index [BMI] 40.0-44.9, adult; E00.1 Congenital iodine-deficiency syndrome, myxedematous type; I10 Essential (primary) hypertension; E11.9 Type 2 diabetes mellitus without complications; E78.5 Hyperlipidemia, unspecified; Z79.899 Other long term (current) drug therapy; Z79.84 Long term (current) use of oral hypoglycemic drugs; Z88.2 Allergy status to sulfonamides; H49.00 Third [oculomotor] nerve palsy, unspecified eye; Z91.048 Other nonmedicinal substance allergy status
CPT/HCPCS: 36415; 36416; 36430; 70450; 71045; 80048; 80061; 82553; 82565; 82805; 83036; 84484; 85007; 85014; 85018; 85025; 85027; 85049; 85347; 85652; 86850; 86900; 86901; 93005; 93010; 93306; 93458; 93798; 94002; 94150; 94760; 96372; 99152; A4216; C1769; J1642; J1644; J1650; J1815; J1885; J1940; J2001; J2250; J2440; J2704; J2720; J3010; J3475; J3480; J7050; P9045; S0017